=== PATIENT | male | born 1940 | race Caucasian/White ===

== ENCOUNTER → 2017-05-22 | Outpatient (CLI) | payer MEDICARE, OTHER ==
--- NOTE | 2017-05-22 14:46 | RADIOLOGY REPORT (SQ) ---
EXAM DESCRIPTION: CHEST PA/LATERAL COMPLETED DATE/TIME: 05/22/2017 1:47 pm REASON FOR STUDY: ABNORMAL CHEST XRAY COMPARISON: March 2016 EXAM PARAMETERS: NUMBER OF VIEWS: two views TECHNIQUE: Digital Frontal and Lateral radiographic views of the chest acquired. RADIATION DOSE: NA LIMITATIONS: none FINDINGS: LUNGS AND PLEURA: No opacities, masses or pneumothorax. No pleural effusion. MEDIASTINUM AND HILAR STRUCTURES: No masses or contour abnormalities. HEART AND VASCULAR STRUCTURES: Heart normal size. No evidence for failure. BONES: No acute findings. HARDWARE: None in the chest. OTHER: No other significant finding. IMPRESSION: NO SIGNIFICANT RADIOGRAPHIC FINDING IN THE CHEST. TECHNICAL DOCUMENTATION: JOB ID: [id number] [employer]- All Rights Reserved
== END ==
LOC: OD 13:33
PROVIDERS: ATTEND Physician Assistant
DX: R93.8 Abnormal findings on diagnostic imaging of other specified body structures (principal)
CPT/HCPCS: 71020

== ENCOUNTER → 2018-02-10 | Outpatient (CLI) | payer MEDICARE, OTHER ==
--- NOTE | 2018-02-10 16:22 | RADIOLOGY REPORT (SQ) ---
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 The route of agent administration: Intravenous. ADDITIONAL DRUGS AND DOSES: None. TECHNIQUE: Routine delayed images at 3 hours post radionuclide injection acquired of the bony skelet on including anterior and posterior whole-body projections and additional focused images as needed. LIMITATIONS: None. FINDINGS: BONES: No skeletal areas increase tracer activity to suggest metastatic disease is seen. There photopenic areas at the level of the knees bilaterally with some minimal associated increase tr acer accumulation which may be related to bilateral knee prostheses. There is focal increased activi ty at the level of the toes bilaterally which could be degenerative in nature or related to previous trauma P KIDNEYS: Symmetric excretion without obstruction. OTHER: No other significant finding. IMPRESSION: No evidence for skeletal metastatic disease. Other findings as noted above. COMMENT: Quality measure 147: TECHNICAL DOCUMENTATION: JOB ID: [id number] [employer]- All Rights Reserved Reading location - IP/workstation name: [email or web address]
== END ==
LOC: RAD 10:48
PROVIDERS: ATTEND Urology
DX: C61 Malignant neoplasm of prostate (principal)
CPT/HCPCS: 78306; A9561

== ENCOUNTER 2019-11-03 21:25 | Emergency (ER) | payer MEDICARE, OTHER ==
[2019-11-04 00:31] LABS: APPEARANCE,URINE CLEAR; BILIRUBIN,URINE NEGATIVE (NEGATIVE); COLOR,URINE YELLOW; GLUCOSE, URINE NEGATIVE (NEGATIVE); KETONES,URINE NEGATIVE (NEGATIVE); PROTEIN,URINE NEGATIVE (NEGATIVE); URINE SPECIFIC GRAVITY 1.011; UROBILINOGEN,URINE NEGATIVE mg/dL (<2.0)
[2019-11-04 00:40] LABS: ABSOLUTE LYMPHOCYTES (AUTO) 0.9 10^3/uL (0.5-4.7); ABSOLUTE MONOCYTES (AUTO) 0.3 10^3/uL (0.1-1.4); ABSOLUTE NEUT (AUTO) 4.3 10^3/uL (1.7-8.2); BASOPHILS % (AUTO) 0.5 % (0-2); EOSINOPHILS % (AUTO) 0.7 % (0-6); HEMATOCRIT 38.9 % (37.9-51.0); HEMOGLOBIN 13.8 g/dL (13.5-17.0); LYMPHOCYTES % (AUTO) 15.6 % (13-45); MEAN CORPUSCULAR HEMOGLOBIN 32.6 pg (27.0-33.4); MEAN CORPUSCULAR HGB CONC 35.5 g/dL (32.0-36.0); MEAN CORPUSCULAR VOLUME 92 fl (80-97); MONOCYTES % (AUTO) 6.2 % (3-13); PLATELET COUNT 157 10^3/uL (150-450); RED BLOOD COUNT 4.23 10^6/uL (4.35-5.55); RED CELL DISTRIBUTION WIDTH 13.8 % (11.5-14.0); TOTAL CELLS COUNTED % (AUTO) 100 %; WHITE BLOOD COUNT 5.6 10^3/uL (4.0-10.5)
[2019-11-04 00:50] LABS: ALBUMIN 4.4 g/dL (3.5-5.0); ALKALINE PHOSPHATASE 69 U/L (38-126); ANION GAP 8 (5-19); ASPARTATE AMINO TRANSFERASE 32 U/L (17-59); BILIRUBIN,TOTAL 0.5 mg/dL (0.2-1.3); BLOOD UREA NITROGEN 15 mg/dL (7-20); CALCIUM 9.5 mg/dL (8.4-10.2); CARBON DIOXIDE 26 mmol/L (22-30); CHLORIDE 105 mmol/L (98-107); GLUCOSE 111 mg/dL (75-110); POTASSIUM 4.2 mmol/L (3.6-5.0)
--- NOTE | 2019-11-04 00:51 | ER Document Report ---
Entered by STACEY PUGA SCRIBE 11/03/19 [id number] Acting as scribe for:YARELI SORTO IV, MD ED General - General Chief Complaint: Altered Mental Status Stated Complaint: ALTERED MENTAL STATUS/ABNORAL BEHAVIOR Time Seen by Provider: 11/03/19 23:40 Primary Care Provider: MARY YOUNG MD [ACTIVE STAFF] - Follow up as needed Information source: Patient Cannot obtain history due to: Altered mental status Notes: 79-year-old male presents to the emergency department via EMS due to altered mental status. Patient was seen and requested to urinate. Patient's history is difficult to obtain due to patient's altered mental status. TRAVEL OUTSIDE OF THE [place] IN LAST 30 DAYS: No Past Medical History - General Information source: Patient Cannot obtain history due to: Altered mental status - Social History Smoking Status: Unknown if Ever Smoked Family History: Reviewed & Not Pertinent Review of Systems - Review of Systems -: Yes ROS unobtainable due to patient's medical condition Physical Exam - Vital signs Vitals: Temp Pulse Resp BP Pulse Ox 98.2 F 95 18 140/64 H 95 11/03/19 21:37 11/03/19 21:37 11/03/19 21:37 11/03/19 21:37 11/03/19 21:37 - Notes Notes: Physical Exam: General: Alert, appears well. HEENT: Normocephalic. Atraumatic. PERRL. Extraocular movements intact. Oropharynx clear. Neck: Supple. Non-tender. Respiratory: No respiratory distress. Clear and equal breath sounds bilaterally. Cardiovascular: Regular rate and rhythm. Abdominal: Normal Inspection. Non-tender. No distension. Normal Bowel Sounds. Back: No gross abnormalities. Extremities: Moves all four extremities. Upper extremities: Normal inspection. Normal ROM. Lower extremities: Normal inspection. No edema. Normal ROM. Neurological: Normal cognition. AAOx4. Normal speech. Psychological: Normal affect. Normal Mood. Skin: Warm. Dry. Normal color. Course - Re-evaluation Re-evalutation: 11/04/19 04:00 Results of patient's ED MSE discussed with patient. All questions were answered prior to discharge. Emergency signs and symptoms, reasons to return to the emergency department discussed with patient. - Vital Signs Vital signs: Temp Pulse Resp BP Pulse Ox 98.4 F 71 16 114/64 95 11/04/19 04:00 11/04/19 03:00 11/04/19 05:01 11/04/19 05:01 11/04/19 05:01 - Laboratory Result Diagrams: 11/04/19 00:30 11/04/19 00:30 Laboratory results interpreted by me: 11/03/19 11/04/19 11/04/19 21:45 00:30 00:30 RBC 4.23 L Glucose 111 H Urine Ascorbic Acid 20 H - EKG Interpretation by Me Additional EKG results interpreted by me: 11/04/19 04:01 EKG obtained at 00 24 hours on 11/04/2019 was interpreted by this MD. Findings: Sinus rhythm, rate 78, normal axis, P waves proceed QRS complexes, QRS complexes appear narrow, there are no obvious visible patterns of ST segment elevation or depression present to suggest acute myocardial ischemia or infarction. Impression normal sinus rhythm with nonspecific ST segments. Discharge - Discharge Clinical Impression: Altered mental status, unspecified Qualifiers: Altered mental status type: unspecified Qualified Code(s): R41.82 - Altered mental status, unspecified Condition: Good Disposition: HOME, SELF-CARE Additional Instructions: Return to the Emergency Department without delay if any worse. HOME CARE INSTRUCTIONS & INFORMATION: Thank you for choosing us for your medical needs. We hope you're satisfied with the care you received. After you leave, you must properly care for your problem and, at the same time, observe its progress. Any condition can change. Some illnesses can change rapidly over hours or days. If your condition worsens, return to the Emergency Department or see your physician promptly. ABOUT YOUR X-RAYS AND EKG'S: If you had an EKG or X-rays taken, they have been read by the Emergency Physician. The X-rays and EKG's will also be read by a Radiologist or Cafeteria Cook within 24 hours. If discrepancies are noted, you will be notified by telephone. Please be certain the ED has a correct telephone number & address where you can be reached. Also, realize that some fractures or abnormalities do not show up on initial X-rays. If your symptoms continue, see your physician. ABOUT YOUR LABORATORY TEST: If you had laboratory tests, the results have been reviewed by the Emergency Physician. Some test results (for example cultures) may not be available for several days. You will be contacted if any test result shows you need additional treatment. Please be certain the ED has a correct tel ephone number and address where you can be reached. ABOUT YOUR MEDICATIONS: You will receive instructions on how to take your medicine on the prescription label you receive. Additional information may be provided by the Pharmacy. If you have questions afterwards, call the ED for clarification or further instructions. Some prescribed medications may cause drowsiness. Do not perform tasks such as driving a car or operating machinery without consulting your Pharmacist. If you feel you need a refill of pain medication, your condition will need re-evaluation. Please do not call for a refill of any medication. ABOUT YOUR SIGNATURE: Signature of this document acknowledges to followin. Understanding that you received emergency treatment and that you may be released before al medical problems are known or treated. Please be certain the ED has a correct phone number & address where you can be reached. 2. Acknowledgement that you will arrange for follow-up care as recommended. 3. Authorization for the Emergency Physician to provide information to your follow-up Physician in order to maximize your care. AT ANY TIME, IF YOUR SYMPTOMS CHANGE SIGNIFICANTLY OR WORSEN OR YOU DEVELOP NEW SYMPTOMS, RETURN TO THE EMERGENCY DEPARTMENT IMMEDIATELY FOR RE-EVALUATION. OUR GOAL IS TO PROVIDE EXCELLENT MEDICAL CARE! WE HOPE THAT WE HAVE MET YOUR EXPECTATIONS DURING YOUR EMERGENCY DEPARTMENT VISIT AND THAT YOU FEEL YOU HAVE RECEIVED EXCELLENT CARE! Referrals: MARY YOUNG MD [ACTIVE STAFF] - Follow up as needed I personally performed the services described in the documentation, reviewed and edited the documentation which was dictated to the scribe in my presence, and it accurately records my words and actions.
--- NOTE | 2019-11-04 01:49 | RADIOLOGY REPORT (SQ) ---
EXAM DESCRIPTION: CT HEAD WITHOUT IV CONTRAST COMPLETED DATE/TME: 11/03/2019 23:49 CLINICAL INDICATION: 79-year-old male with altered mental status. COMPARISON: None. TECHNIQUE: CT brain without contrast. This exam was performed according to our departmental dose optimization program which includes use of automated exposure control, adjustment of the mA and/or kV according to patient size and/or use of iterative reconstruction technique. FINDINGS: Multifocal regions of patchy hypoattenuation are present in a subcortical and periventricular deep white matter distribution, nonspecific; however, most likely represent small vessel ischemic disease, age indeterminate. Centimeters focus of hypoattenuation is present at the level of the RIGHT basal ganglia, age indeterminate however suggesting sequela of prior lacunar infarction. The ventricles, and sulci are enlarged compatible with underlying volume loss. The jones-white matter differentiation is preserved. There is no mass effect, midline shift, intra- or extra-axial fluid collection/acute hemorrhage. The osseous structures are unremarkable. The paranasal sinuses and mastoid air cells are clear. IMPRESSION: 1. No acute intracranial abnormalities. Nonspecific white matter change most likely small vessel ischemic disease, age indeterminate. 2. CT is insensitive for early evaluation of acute stroke. If there is clinical concern for acute ischemia, an MRI may be considered.
[2019-11-04 06:45] VITALS: BP 125/73
--- NOTE | 2019-11-04 18:14 | EKG REPORT ---
SEVERITY:- NORMAL ECG - SINUS RHYTHM : Confirmed by: Mary Vazquez 04-Nov-2019 18:13:21
== END 2019-11-04 06:00 | disposition home or self-care (01) ==
LOC: ER 21:25
DX: R41.82 Altered mental status, unspecified (principal)
CPT/HCPCS: 36415; 70450; 80053; 81001; 84484; 85025; 93005; 93010; 99285

== ENCOUNTER 2020-03-03 20:43 | Emergency (ER) | payer MEDICARE, OTHER ==
--- NOTE | 2020-03-03 21:16 | ER Document Report ---
ED General - General Chief Complaint: Altered Mental Status Stated Complaint: ALTERED MENTAL STATUS Time Seen by Provider: 03/03/20 21:00 Primary Care Provider: BRICE HOLLAND MD [Primary Care Provider] - Follow up as needed Notes: Patient is an 79-year-old male that comes emergency department for chief complaint of altered mental status. He comes from home by EMS. Patient lives at home with his . He has a history of dementia at baseline but reportedly he was more confused than normal. He also has a history of prostate cancer, hyperlipidemia, and anxiety on Ativan. He also has hearing aids. Patient denies any pain, nausea, weakness, fever/chills, or any current complaints. He states that he "I do not know why my sent me here". He is unable to tell me the year, the president, or his location. However patient does follow directions without difficulty and he is friendly and interactive. TRAVEL OUTSIDE OF THE [place] IN LAST 30 DAYS: No - Related Data Allergies/Adverse Reactions: No Known Allergies Allergy (Unverified 03/03/20 21:21) Past Medical History - General Information source: Patient - Social History Smoking Status: Never Smoker Frequency of alcohol use: None Drug Abuse: None Lives with: Family Family History: Reviewed & Not Pertinent Patient has homicidal ideation: No - Past Medical History Cardiac Medical History: Reports: Hx Hypercholesterolemia Malignancy Medical History: Reports Hx Prostate Cancer Psychiatric Medical History: Reports: Hx Anxiety - Immunizations Hx Diphtheria, Pertussis, Tetanus Vaccination: Yes Review of Systems - Review of Systems Constitutional: See HPI EENT: No symptoms reported Cardiovascular: No symptoms reported Respiratory: No symptoms reported Gastrointestinal: No symptoms reported Genitourinary: No symptoms reported Male Genitourinary: No symptoms reported Musculoskeletal: No symptoms reported Skin: No symptoms reported Hematologic/Lymphatic: No symptoms reported Neurological/Psychological: See HPI Physical Exam - Vital signs Vitals: Resp Pulse Ox 18 96 03/03/20 20:47 03/03/20 20:47 - Notes Notes: GENERAL: Alert, interacts well. No acute distress. HEAD: Normocephalic, atraumatic. EYES: Pupils equal, round, and reactive to light. Extraocular movements intact. ENT: Oral mucosa moist, tongue midline. Oropharynx unremarkable. Airway patent. NECK: Full range of motion. Supple. Trachea midline. No lymphadenopathy. LUNGS: Clear to auscultation bilaterally, no wheezes, rales, or rhonchi. No respiratory distress. Non-tender chest wall. HEART: Regular rate and rhythm. No murmur ABDOMEN: Soft, non-tender. Non-distended. Bowel sounds present in all 4 quadra nts. GENITOURINARY: Deferred EXTREMITIES: Moves all 4 extremities spontaneously. No edema, normal radial and dorsalis pedis pulses bilaterally. No cyanosis. BACK: no cervical, thoracic, lumbar midline tenderness. No saddle anesthesia, normal distal neurovascular exam. Moves all extremities in full range of motion. NEUROLOGICAL: Patient is alert but he is not oriented to place or events. Normal speech. Cranial nerves II through XII grossly intact. Strength 5/5 in all extremities, ambulates without ataxia. PSYCH: Normal affect, normal mood. SKIN: Warm, dry, normal turgor. No rashes or lesions noted. Course - Re-evaluation Re-evalutation: Patient is very alert although he is not oriented. Patient is very cooperative, he speaks without difficulty, his physical exam is unremarkable otherwise, he has no neurological deficits other than the confusion. Reportedly patient is demented at baseline and this has been worsening recently. CT of the head unremarkable, chest x-ray unremarkable, CBC, chemistry, urinalysis, drug screen, alcohol are all unremarkable. We spoke to the about patient being discharged, however the (Abbie) states that she is 79 years old, she no longer can physically take care of him, she states that with his dementia he is becoming more angry, shoves her around, he urinates and defecates on the floor, and her situation has become too difficult for her. She refuses to come pick him up. Reportedly 1 month ago patient was recommended by primary care to be placed in long-term care but this was declined at that time, instead a home health individual was hired 4 days a week but this is not enough help per . Because patient is medically cleared, but will not be picked up to be taken back to his previous residence, patient is a social hold at this time with case management consult pending. Patient's daily medications were ordered. 03/04/20 Patient is coming out to the nursing station and we are having a lot of difficulty redirecting patient back into the room, he did not become violent but he insisted on staying. Initially he was given 2.5 mg of Haldol PO and went tatyana k but then he came back and did the same thing, I had to give him 1 mg of Ativan (he is already prescribed Ativan). After this patient did go back to his room and is lying down. - Vital Signs Vital signs: Temp Pulse Resp BP Pulse Ox 97.9 F 72 16 134/72 H 99 03/03/20 20:58 03/04/20 03:00 03/04/20 03:00 03/04/20 03:00 03/04/20 03:00 - Laboratory Result Diagrams: 03/03/20 21:55 03/03/20 21:55 Laboratory results interpreted by me: 03/03/20 03/03/20 21:55 22:35 Sodium 133.3 L Ammonia < 8.7 L - EKG Interpretation by Me Additional EKG results interpreted by me: EKG shows sinus rhythm at a rate of 73, normal axis, QTC 397, no T wave inversions or ST segment changes in consecutive leads Discharge - Discharge Clinical Impression: Dementia Qualifiers: Dementia type: unspecified type Dementia behavioral disturbance: with behavioral disturbance Qualified Code(s): F03.91 - Unspecified dementia with behavioral disturbance Condition: Stable Disposition: PSYCH HOSP/UNIT Referrals: BRICE HOLLAND MD [Primary Care Provider] - Follow up as needed
[2020-03-03 21:20] LABS: APPEARANCE,URINE CLEAR; BILIRUBIN,URINE NEGATIVE (NEGATIVE); COLOR,URINE STRAW; GLUCOSE, URINE NEGATIVE (NEGATIVE); KETONES,URINE NEGATIVE (NEGATIVE); LEUKOCYTE ESTERASE,URINE NEGATIVE (NEGATIVE); NITRITE,URINE NEGATIVE (NEGATIVE); PROTEIN,URINE NEGATIVE (NEGATIVE); URINE SPECIFIC GRAVITY 1.008; UROBILINOGEN,URINE NEGATIVE mg/dL (<2.0)
--- NOTE | 2020-03-03 22:06 | RADIOLOGY REPORT (SQ) ---
EXAM DESCRIPTION: CT HEAD WITHOUT IV CONTRAST COMPLETED DATE/TME: 03/03/2020 21:13 CLINICAL HISTORY: 79 years, Male, AMS COMPARISON: 11/04/2019 CT TECHNIQUE: 205 Images stored on PACS. All CT scanners at this facility use dose modulation, iterative reconstruction, and/or weight based dosing when appropriate to reduce radiation dose to as low as reasonably achievable (ALARA). [facility]: Dose Right [facility]: CareDose [facility]: Dose Right [facility]: Teradose 4D [facility]: [employer] LIMITATIONS: None. FINDINGS: The globes are intact. Paranasal sinuses and mastoid air cells are well aerated. No displaced or depressed skull fracture. No intra or extra-axial hemorrhage. CT is limited for evaluation of acute infarct. No CT evidence for large or territorial acute infarct. Mild age-appropriate atrophy. No mass or midline shift IMPRESSION: No acute intracranial abnormality. Age-appropriate atrophy TECHNICAL DOCUMENTATION: Quality ID # [id number]: Final reports with documentation of one or more dose reduction techniques (e.g., Automated exposure control, adjustment of the mA and/or kV according to patient size, use of iterative reconstruction technique) copyright 2011 [employer]- All Rights Reserved
[2020-03-03 22:09] LABS: ABSOLUTE BASOPHILS # (AUTO) 0.1 10^3/uL (0.0-0.2); ABSOLUTE EOSINOPHILS # (AUTO) 0.1 10^3/uL (0.0-0.6); ABSOLUTE LYMPHOCYTES (AUTO) 1.4 10^3/uL (0.5-4.7); ABSOLUTE MONOCYTES (AUTO) 0.4 10^3/uL (0.1-1.4); ABSOLUTE NEUT (AUTO) 2.8 10^3/uL (1.7-8.2); BASOPHILS % (AUTO) 1.3 % (0-2); EOSINOPHILS % (AUTO) 1.7 % (0-6); HEMATOCRIT 41.3 % (37.9-51.0); HEMOGLOBIN 14.2 g/dL (13.5-17.0); LYMPHOCYTES % (AUTO) 29.3 % (13-45); MEAN CORPUSCULAR HGB CONC 34.3 g/dL (32.0-36.0); MEAN CORPUSCULAR VOLUME 93 fl (80-97); MONOCYTES % (AUTO) 9.2 % (3-13); PLATELET COUNT 183 10^3/uL (150-450); RED BLOOD COUNT 4.43 10^6/uL (4.35-5.55); RED CELL DISTRIBUTION WIDTH 13.5 % (11.5-14.0); SEGMENTED NEUTROPHILS % (AUTO) 58.5 % (42-78); TOTAL CELLS COUNTED % (AUTO) 100 %; WHITE BLOOD COUNT 4.8 10^3/uL (4.0-10.5)
--- NOTE | 2020-03-03 22:10 | RADIOLOGY REPORT (SQ) ---
EXAM DESCRIPTION: XR CHEST 1 VIEW COMPLETED DATE/TME: 03/03/2020 21:13 CLINICAL HISTORY: 79 years, Male, AMS COMPARISON: 05/22/2017 chest NUMBER OF VIEWS: 1 TECHNIQUE: Portable chest LIMITATIONS: None. FINDINGS: The heart size is normal. Lungs are clear. No pneumothorax IMPRESSION: Negative chest copyright 2010 [employer]- All Rights Reserved
[2020-03-03 22:28] LABS: ALBUMIN 4.9 g/dL (3.5-5.0); ALKALINE PHOSPHATASE 80 U/L (38-126); ANION GAP 7 (5-19); ASPARTATE AMINO TRANSFERASE 31 U/L (17-59); BILIRUBIN,TOTAL 0.3 mg/dL (0.2-1.3); BLOOD UREA NITROGEN 18 mg/dL (7-20); CALCIUM 9.5 mg/dL (8.4-10.2); CARBON DIOXIDE 28 mmol/L (22-30); CHLORIDE 98 mmol/L (98-107); GLUCOSE 105 mg/dL (75-110); POTASSIUM 4.2 mmol/L (3.6-5.0); TOTAL PROTEIN 7.6 g/dL (6.3-8.2)
[2020-03-03 22:33] LABS: ALCOHOL < 10 mg/dL (NONE DETECTED)
--- NOTE | 2020-03-03 22:38 | EKG REPORT ---
SEVERITY:- NORMAL ECG - SINUS RHYTHM : Confirmed by: Frank Emmanuel MD 03-Mar-2020 22:38:05
[2020-03-03 23:06] LABS: URINE AMPHETAMINES SCREEN NEGATIVE; URINE BARBITURATES SCREEN NEGATIVE; URINE BENZODIAZEPINES SCREEN NEGATIVE; URINE COCAINE SCREEN NEGATIVE; URINE MARIJUANA (THC) SCREEN NEGATIVE; URINE METHADONE SCREEN NEGATIVE; URINE PHENCYCLIDINE SCREEN NEGATIVE
[2020-03-04] MEDS ORDERED: HALOPERIDOL 5 MG TABLET PO ONE (01:51)
[2020-03-04] MEDS ORDERED: LORAZEPAM 1 MG TABLET PO ONE (04:07)
[2020-03-04] MEDS ORDERED: DOXAZOSIN MESYLATE 4 MG TABLET PO SCH (10:00)
[2020-03-04] MEDS ORDERED: HALOPERIDOL 2 MG TABLET PO PRN (15:36)
[2020-03-04] MEDS: LORAZEPAM 0.5 MG TABLET PO PRN (15:41)
--- NOTE | 2020-03-04 15:43 | ER Document Report ---
Doctor's Note Notes: 03/04/20 15:39 Provider rounds on patient today. Patient examined, and his episodic behavioral disturbance and agitation needing redirection back to his room. Patient is on social hold inasmuch as his family does not want to have him return to home and therefore case management is working on a disposition for patient.disposition determination was yet to be determined at this time Exam: Patient is not showing any acute distress other than his dementia is noted. Plan: Pending disposition per case management.
[2020-03-04] MEDS ORDERED: MELATONIN 3 MG TABLET PO ONE (17:50)
[2020-03-04] MEDS ORDERED: SIMVASTATIN 10 MG TABLET PO SCH (22:00)
[2020-03-05] MEDS: LORAZEPAM 0.5 MG TABLET PO PRN (01:38)
[2020-03-05 06:41] VITALS: BP 117/56
--- NOTE | 2020-03-05 07:38 | ER Document Report ---
Doctor's Note Notes: 0 ED providers note daily exam. Patient is in no distress vital signs are stable patient has no complaints at this time. Patient's has agreed to receive patient at home and she. Patient is being discharged today and transportation by cab voucher. Exam lungs clear equal breath sounds cor S1-S2 patient alert and voices no new complaints. Assessment dementia Plan discharge home follow-up with primary care physician. No new prescriptions at this time. 03/05/20 07:35 Discharge - Discharge Clinical Impression: Dementia Qualifiers: Dementia type: unspecified type Dementia behavioral disturbance: with behavioral disturbance Qualified Code(s): F03.91 - Unspecified dementia with behavioral disturbance Condition: Stable Disposition: HOME, SELF-CARE Additional Instructions: Dementia The exam shows a decrease in mental ability called dementia. Signs of dementia include a gradual loss of memory and a decreased ability to reason and solve problems. Personality changes, hostility, lack of self-care, and loss of bladder or bowel control are later signs of dementia. In these later stages, patients may become confused, lost, fearful, or agitated, even in familiar places. Alzheimer's disease is the most common type of dementia. It has no known cause or specific treatment. Other causes include alcohol and drug abuse, medication effects (especially tranquilizers and sleeping pills), strokes, head injuries, and brain tumors. Sometimes severe depression in an elderly person is mistaken for dementia, and this can be treated if recognized. A complete medical evaluation and ongoing care with a doctor is important. Most people with dementia need help or supervision with daily living. Some may be able to live independently with occasional help; others require foster care or even shelter placement. Alcohol, sedatives, and antihistamines may make the symptoms worse and should be avoided. Alzheimer's disease support groups are available in some communities and can be very valuable to the entire family. Prescription medication can ease the symptoms of Alzheimer's disease in some patients. Please arrange for medical follow-up. Return here if there is a sudden change in mental function, inability to move an arm or leg, inability to speak, fever, or any other significant change. Referrals: BRICE HOLLAND MD [Primary Care Provider] - Follow up as needed
== END 2020-03-05 08:11 | disposition home or self-care (01) ==
LOC: ER 20:43
DX: F03.91 Unspecified dementia, unspecified severity, with behavioral disturbance (principal); F41.9 Anxiety disorder, unspecified; Z79.899 Other long term (current) drug therapy; Z85.46 Personal history of malignant neoplasm of prostate
CPT/HCPCS: 93005; 99285; 36415; 80307 ×2; 82140; 85025; 80053; 81001; 84484; 71045; 70450; 93010; A9270 ×8; J3490

== ENCOUNTER 2020-03-09 17:35 | Emergency (ER) | payer MEDICARE, OTHER ==
[2020-03-09 18:25] LABS: ABSOLUTE BASOPHILS # (AUTO) 0.1 10^3/uL (0.0-0.2); ABSOLUTE EOSINOPHILS # (AUTO) 0.1 10^3/uL (0.0-0.6); ABSOLUTE LYMPHOCYTES (AUTO) 1.3 10^3/uL (0.5-4.7); ABSOLUTE MONOCYTES (AUTO) 0.4 10^3/uL (0.1-1.4); ABSOLUTE NEUT (AUTO) 3.5 10^3/uL (1.7-8.2); EOSINOPHILS % (AUTO) 1.2 % (0-6); HEMATOCRIT 42.4 % (37.9-51.0); HEMOGLOBIN 14.6 g/dL (13.5-17.0); LYMPHOCYTES % (AUTO) 24.4 % (13-45); MEAN CORPUSCULAR HEMOGLOBIN 32.1 pg (27.0-33.4); MEAN CORPUSCULAR HGB CONC 34.5 g/dL (32.0-36.0); MEAN CORPUSCULAR VOLUME 93 fl (80-97); MONOCYTES % (AUTO) 7.2 % (3-13); PLATELET COUNT 187 10^3/uL (150-450); RED BLOOD COUNT 4.56 10^6/uL (4.35-5.55); RED CELL DISTRIBUTION WIDTH 13.4 % (11.5-14.0); SEGMENTED NEUTROPHILS % (AUTO) 66.2 % (42-78); TOTAL CELLS COUNTED % (AUTO) 100 %; WHITE BLOOD COUNT 5.2 10^3/uL (4.0-10.5)
--- NOTE | 2020-03-09 18:26 | ER Document Report ---
ED General - General Chief Complaint: Psych Problem Stated Complaint: PSYCH EVALUATION Time Seen by Provider: 03/09/20 18:19 Primary Care Provider: BRICE HOLLAND MD [Primary Care Provider] - Follow up as needed Mode of Arrival: Medic Information source: Patient Notes: This 79-year-old man with a history of Alzheimer's dementia was brought to the emergency department by EMS. Apparently the has sent him to the hospital because she is unable to take care of him at home. She also notes that she feels that he is a threat and that he may harm her. The local Hemotherapist's office got involved all the guns were taken out of the household, the is adamant that he must come to the hospital since she is unable to care for him. Patient is nonverbal and unable to complete a normal verbal exchange. TRAVEL OUTSIDE OF THE [place] IN LAST 30 DAYS: No - Related Data Allergies/Adverse Reactions: No Known Allergies Allergy (Verified 03/09/20 18:03) Past Medical History - Social History Smoking Status: Unknown if Ever Smoked Family History: Reviewed & Not Pertinent - Past Medical History Cardiac Medical History: Reports: Hx Hypercholesterolemia Malignancy Medical History: Reports Hx Prostate Cancer Psychiatric Medical History: Reports: Hx Anxiety - Immunizations Hx Diphtheria, Pertussis, Tetanus Vaccination: Yes Review of Systems - Review of Systems -: Yes ROS unobtainable due to patient's medical condition - Dementia and inability to answer questions appropriately Physical Exam - Vital signs Vitals: Temp Pulse Resp BP Pulse Ox 98.0 F 96 20 131/74 H 95 03/09/20 17:50 03/09/20 17:50 03/09/20 17:50 03/09/20 17:50 03/09/20 17:50 - Notes Notes: PHYSICAL EXAMINATION: Physical Exam: General: Frail confused 79-year-old man in no acute distress HEENT: NC/AT, pupils equal round and reactive to light, MM moist,nares clear, oropharynx clear, airway patent Neck: supple, no adenopathy, no masses. Good range of motion Lungs: Good air movement, no wheezes or rales CVS: Regular rate and rhythm no murmur gallop or rub Abdomen: Soft, active, nontender, no masses, no hepatosplenomegaly Ext: No edema, clubbing or cyanosis. Neuro: No focal neurologic findings. Skin: Intact no open lesions, no rash Psychiatric: Cooperative, reaches out to shake my hand on prompting, when asked his name he mumbles incoherently. Course - Re-evaluation Re-evalutation: 03/12/20 10:55 The patient is being discharged home with and has a physician's appointment today. - Vital Signs Vital signs: Temp Pulse Resp BP Pulse Ox 97.5 F 77 16 115/75 100 03/12/20 10:17 03/12/20 10:17 03/12/20 10:17 03/12/20 10:17 03/12/20 10:17 - Laboratory Result Diagrams: 03/09/20 18:13 03/09/20 18:13 Laboratory results interpreted by me: 03/09/20 18:13 Sodium 133.2 L Salicylates < 1.0 L Acetaminophen < 10 L I have reviewed laboratory data and used this information for the treatment decisions regarding the patient. - EKG Interpretation by Me EKG shows normal: Sinus rhythm, [place] - Normal, QRS Complexes, ST-T Waves - No acute ST or T wave abnormalities, no ischemic changes. Rate: Normal - Rate 79 Discharge - Discharge Clinical Impression: Poor social situation Alzheimer's dementia with behavioral disturbance Qualifiers: Alzheimer's disease onset: unspecified onset Qualified Code(s): G30.9 - Alzheimer's disease, unspecified Condition: Fair Disposition: HOME, SELF-CARE Instructions: Dementia ([facility]) Additional Instructions: The patient is being discharged home with and has a physician's appointment today. HOME CARE INSTRUCTIONS & INFORMATION: Thank you for choosing us for your medical needs. We hope you're satisfied with the care you received. After you leave, you must properly care for your problem and, at the same time, observe its progress. Any condition can change. Some illnesses can change rapidly over hours or days. If your condition worsens, return to the Emergency Department or see your physician promptly. ABOUT YOUR X-RAYS AND EKG'S: If you had an EKG or X-rays taken, they have been read by the Emergency Physician. The X-rays and EKG's will also be read by a Radiologist or Bleach Mixer within 24 hours. If discrepancies are noted, you will be notified by telephone. Please be certain the ED has a correct telephone number & address where you can be reached. Also, realize that some fractures or abnormalities do not show up on initial X-rays. If your symptoms continue, see your physician. ABOUT YOUR LABORATORY TEST: If you had laboratory tests, the results have been reviewed by the Emergency Physician. Some test results (for example cultures) may not be available for several days. You will be contacted if any test result shows you need additional treatment. Please be certain the ED has a correct tel ephone number and address where you can be reached. ABOUT YOUR MEDICATIONS: You will receive instructions on how to take your medicine on the prescription label you receive. Additional information may be provided by the Pharmacy. If you have questions afterwards, call the ED for clarification or further instructions. Some prescribed medications may cause drowsiness. Do not perform tasks such as driving a car or operating machinery without consulting your Pharmacist. If you feel you need a refill of pain medication, your condition will need re-evaluation. Please do not call for a refill of any medication. ABOUT YOUR SIGNATURE: Signature of this document acknowledges to followin. Understanding that you received emergency treatment and that you may be released before al medical problems are known or treated. Please be certain the ED has a correct phone number & address where you can be reached. 2. Acknowledgement that you will arrange for follow-up care as recommended. 3. Authorization for the Emergency Physician to provide information to your follow-up Physician in order to maximize your care. AT ANY TIME, IF YOUR SYMPTOMS CHANGE SIGNIFICANTLY OR WORSEN OR YOU DEVELOP NEW SYMPTOMS, RETURN TO THE EMERGENCY DEPARTMENT IMMEDIATELY FOR RE-EVALUATION. OUR GOAL IS TO PROVIDE EXCELLENT MEDICAL CARE! WE HOPE THAT WE HAVE MET YOUR EXPECTATIONS DURING YOUR EMERGENCY DEPARTMENT VISIT AND THAT YOU FEEL YOU HAVE RECEIVED EXCELLENT CARE! Prescriptions: Buspirone HCl [Buspar 10 mg Tablet] 5 mg PO BID #20 tablet Clonidine HCl [Catapres 0.1 mg Tablet] 0.1 mg PO Q12 #20 tablet Clonidine [Catapres-Tts 1] 1 each TD CONTINUOUS PRN #2 patch.tdwk PRN Reason: Divalproex Sodium [Depakote] 500 mg PO BID #20 tablet. Risperidone [Risperdal 0.25 Mg Tablet] 0.25 mg PO BID #20 tablet Referrals: BRICE HOLLAND MD [Primary Care Provider] - Follow up as needed
[2020-03-09 18:46] LABS: ALBUMIN 4.8 g/dL (3.5-5.0); ALKALINE PHOSPHATASE 65 U/L (38-126); ANION GAP 10 (5-19); ASPARTATE AMINO TRANSFERASE 32 U/L (17-59); BILIRUBIN,TOTAL 0.6 mg/dL (0.2-1.3); BLOOD UREA NITROGEN 18 mg/dL (7-20); CALCIUM 9.5 mg/dL (8.4-10.2); CARBON DIOXIDE 24 mmol/L (22-30); CHLORIDE 99 mmol/L (98-107); GLUCOSE 104 mg/dL (75-110); POTASSIUM 4.4 mmol/L (3.6-5.0); TOTAL PROTEIN 7.5 g/dL (6.3-8.2)
[2020-03-09 18:47] LABS: ACETAMINOPHEN < 10 ug/mL (10-30); ALCOHOL < 10 mg/dL (NONE DETECTED); SALICYLATE < 1.0 mg/dL (2.0-20.0)
[2020-03-09] MEDS ORDERED: LORAZEPAM 1 MG TABLET PO PRN (19:49)
[2020-03-09 19:58] LABS: APPEARANCE,URINE CLEAR; BILIRUBIN,URINE NEGATIVE (NEGATIVE); COLOR,URINE YELLOW; GLUCOSE, URINE NEGATIVE (NEGATIVE); KETONES,URINE NEGATIVE (NEGATIVE); LEUKOCYTE ESTERASE,URINE NEGATIVE (NEGATIVE); NITRITE,URINE NEGATIVE (NEGATIVE); PROTEIN,URINE NEGATIVE (NEGATIVE); URINE SPECIFIC GRAVITY 1.011; UROBILINOGEN,URINE NEGATIVE mg/dL (<2.0)
[2020-03-09 20:17] LABS: URINE AMPHETAMINES SCREEN NEGATIVE; URINE BARBITURATES SCREEN NEGATIVE; URINE BENZODIAZEPINES SCREEN NEGATIVE; URINE COCAINE SCREEN NEGATIVE; URINE MARIJUANA (THC) SCREEN NEGATIVE; URINE METHADONE SCREEN NEGATIVE; URINE PHENCYCLIDINE SCREEN NEGATIVE
[2020-03-09] MEDS: BUSPIRONE HCL 10 MG TABLET PO SCH (21:25)
[2020-03-09] MEDS: DIVALPROEX SODIUM 250 MG TABLET.DR PO SCH (21:25)
[2020-03-10] MEDS: BUSPIRONE HCL 10 MG TABLET PO SCH ×2 (10:10→18:48)
[2020-03-10] MEDS: DIVALPROEX SODIUM 250 MG TABLET.DR PO SCH ×2 (10:11→18:48)
--- NOTE | 2020-03-10 10:42 | PSYCHOLOGICAL NOTE ---
Psych Note - Psych Note Date seen by psych provider: 03/09/20 Time seen by psych provider: 18:43 - [id number] collateral Psych Note: From [id number] obtained collateral from Emily Borrego ([phone] home, cell) when she called in to nurses station. She reported patient "has Dementia, History of Alcohol Use, the last month he has progressively worsened in terms of being violent/aggressive and today he seemed psychotic." She noted today he pulled out his guns which the Waterproofer has already confiscated. She noted he was in the ED a week ago for similar etiology. reported "I'm 79, disabled, have heart disease with pacemaker, I have a lady that helps me take care of him but he has behaviors with both of us, he cannot come home, I'm scared of him." She identified Dr. Sloan at [facility] is patient's Primary Care Provider who tried to put him into a shelter 4-6 weeks ago "but the paperwork and processing has not been completed." stated she had gone to the Remediation Technician's office where she was given and APS number (female, ) and told to request IVC and COVID testing. She acknowledged her only contact with APS had been today via telephone. denied patient having Mental Health history with the exception of alcohol use in the past and she described it as "there were bad times." was tearful. Chart review revealed patient was seen in the ED 03/02/2020 for altered mental status/similar etiology. He was also seen on 11/03/2019 for altered mental status/abnormal behavior. Clinical Presentation: Increased aggression with behavioral episodes and psychosis History of Dementia per History of Alcohol Use per Medication recommendations made by the psychiatric medication provider Dr. Ivon MARIE., includes: Discontinue home medications of: Ativan 0.5MG twice a day as needed Halcion 0.25MG at night Add Depakote DR 500MG twice a day for mood stabilization Add Buspar 5MG twice a day for anxiety/calming effect/depression/sleep Impression/Plan: Patient is a social hold (ED SW has already been consulted by medical staff). is elderly with medical issues and having difficulty managing patient at home even with the help of another lady. Provided medication recommendations to aid in symptom (increased aggression with behavioral episodes and psychosis per ) management. Consulted with Dr. Daley regarding the management and care of patient. ED Physician in agreement with recommendations.
--- NOTE | 2020-03-10 11:46 | EKG REPORT ---
SEVERITY:- ABNORMAL ECG - SINUS RHYTHM NONSPECIFIC T ABNORMALITIES, LATERAL LEADS : Confirmed by: Rinku Philip MD 10-Mar-2020 11:46:12
[2020-03-10] MEDS: LORAZEPAM 1 MG TABLET PO PRN ×2 (12:17→18:48)
[2020-03-10] MEDS ORDERED: HALOPERIDOL 5 MG TABLET PO ONE (21:51)
[2020-03-10] MEDS ORDERED: LORAZEPAM 0.5 MG TABLET PO ONE (21:51)
[2020-03-11] MEDS: BUSPIRONE HCL 10 MG TABLET PO SCH ×2 (09:08→17:58)
[2020-03-11] MEDS: DIVALPROEX SODIUM 250 MG TABLET.DR PO SCH ×2 (09:09→17:58)
[2020-03-11] MEDS ORDERED: CLONIDINE 0.1 MG/24 HR PATCH.TDWK TD SCH ×2 (10:45→11:00)
[2020-03-11] MEDS ORDERED: CLONIDINE HCL 0.1 MG TABLET PO PRN (10:50)
--- NOTE | 2020-03-11 10:52 | PSYCHOLOGICAL NOTE ---
Psych Note - Psych Note Date seen by psych provider: 03/11/20 Time seen by psych provider: 10:20 - Chart review only Psych Note: Conducted chart review. Late yesterday afternoon patient had multiple instances of wandering behaviors (going into other patients' rooms) and was not easily redirected. He was subsequently put into soft restraints. He chewed through one of the soft restraints which had to be replaced. He was administered Ativan 1MG by mouth 03/10/2020 at 1848, Ativan 0.5MG by mouth 03/10/2020 at 2201 and Haldol 5MG by mouth 03/10/2020 at 2202 all to aid in symptom management after he chewed through the soft restraint. Please note the Depakote 500MG by mouth twice a day was just added 03/09/2020 evening and often takes a few days to become therapeutic. Once it is symptoms should be more manageable. Also discontinued home medications of Halcion (should be out of system already) and Ativan (takes a little longer to get out of system if it was taken regularly). Medication recommendations made by the psychiatric medication provider Dr. Ivon MARIE., includes: Treating Physicians are asked to avoid the use of Anti-Psychotic Medications (Haldol, Geodon, Thorazine, Zyprexa: especially high doses), Benzodiazepines (Ativan, Xanax, Klonopin, Valium: especially high doses), some sleep aids (Lunesta, Ambien, Trazodone, Seroquel), prolonged use of steroids (such as Prednisone) and narcotic pain medications as these are known to cause and/or exacerbate symptoms (psychosis such has delusions/hallucinations/paranoia, mood lability, agitation, aggression, irritability and behavioral issues) in individuals diagnosed with Dementia/Alzheimer's. Often times these medications work in the moment but cause increased symptoms after the medication(s) wear off. Add Risperdal 0.25MG by mouth twice a day scheduled for behaviors (includes agitation, psychomotor agitation, wandering) Add Clonidine 0.1MG Patch every 7 days scheduled for calming effect Add Clonidine 0.1MG by mouth twice a day/every 12 hours as needed for calming effect/behaviors *Can obtain Depakote level tomorrow (03/12/2020) to see where the therapeutic levels are. Impression/Plan: Patient is still cleared from acute psychiatric services. Behavioral Health just trying to assist with medication recommendations for symptom management that also take into consideration the Dementia diagnosis. Hospital SW/DC Planning is involved and have already reached out to patient's . Consulted with Dr. Daley regarding the management and care of patient. ED Physician made aware of recommendations.
[2020-03-11] MEDS: RISPERIDONE 0.25 MG TABLET PO SCH ×2 (11:12→18:02)
[2020-03-11] MEDS ORDERED: ONDANSETRON 4 MG TAB.RAPDIS ONE (15:43)
[2020-03-11] MEDS ORDERED: ONDANSETRON 4 MG TAB.RAPDIS PO ONE (15:43)
[2020-03-11] MEDS ORDERED: ONDANSETRON HCL INJ/PF 4 MG/2 ML SDV IM ONE (17:04)
--- NOTE | 2020-03-11 17:04 | ER Document Report ---
Doctor's Note Notes: 03/11/20 11:00 Janae [facility] asked if I can evaluate the patient for Dr. Sibley. She also gave recommendations on medications. They would like to add Risperdal 0.25 mg p.o. twice daily, clonidine 0.1 mg patch every 7 days, clonidine 0.1 mg every 12 hours as needed for agitation. [facility] also recommends, "please avoid antipsychotic contacts (Haldol, Thorazine, Geodon, Zyprexa: Especially high doses) and benzodiazepines (Ativan, Klonopin, Xanax, Valium) as these have been known to cause and/or exacerbate symptoms (psychosis, mood, aggression) in individuals with dementia/Alzheimer's. They are also recommending that the patient have a Depakote level drawn tomorrow morning. Order placed. Patient became agitated overnight and [facility] does not recommend those medications. 03/11/20 17:04 Patient ended up vomiting began. We will give him Zofran. Asked the nurses to repeat vital signs. 03/11/20 19:47 Patient has not vomited since he received the IM Zofran. Lung sounds are little wheezy. Will give him a breathing treatment. Patient has been walking around in the ED escorted by a sitter to ensure the patient safety and also to help prevent psychosis. PHYSICAL EXAMINATION: GENERAL: Appears well, healthy, well-nourished, no acute distress. LUNGS: Equal breath sounds bilaterally and clear to auscultation. Expiratory wheezes noted in the left lower lobe. CARDIOVASCULAR: S1-S2, regular rate, regular rhythm. Radial pulses 2+, normal. ABDOMEN: Normoactive bowel sounds. Soft, nontender, no guarding, no rebound tenderness, and no masses palpated. PSYCH: Normal mood, normal affect.
[2020-03-11] MEDS ORDERED: ALBUTEROL SULFATE 0.083% NEB 2.5 MG/3 ML AMPUL NEB ONE (19:48)
--- NOTE | 2020-03-11 20:32 | ER Document Report ---
Doctor's Note Notes: 03/11/20 20:28 I reevaluated the patient after his breathing treatment. He has coarse breath sounds in the left lower lobe. Chest x-ray ordered. Primary RN reports that the patient is gurgling little bit. We will also put a speech consult in.
--- NOTE | 2020-03-11 20:51 | RADIOLOGY REPORT (SQ) ---
EXAM DESCRIPTION: XR CHEST 2 VIEWS COMPLETED DATE/TME: 03/11/2020 20:26 CLINICAL HISTORY: 79 years, Male, eval aspiration PNA? COMPARISON: Prior study from 03/03/2020 NUMBER OF VIEWS: 2 TECHNIQUE: Frontal and lateral radiograph are obtained LIMITATIONS: None. FINDINGS: Cardiac and mediastinal contours are stable. Lungs are clear. No pleural effusion or pneumothorax. IMPRESSION: No acute disease. copyright 2010 [employer]- All Rights Reserved
[2020-03-12] MEDS: BUSPIRONE HCL 10 MG TABLET PO SCH (09:42)
[2020-03-12] MEDS: DIVALPROEX SODIUM 250 MG TABLET.DR PO SCH (09:42)
[2020-03-12] MEDS: RISPERIDONE 0.25 MG TABLET PO SCH (09:42)
[2020-03-12 10:18] VITALS: BP 115/75
== END 2020-03-12 12:17 | disposition home or self-care (01) ==
LOC: ER 17:35
DX: G30.9 Alzheimer's disease, unspecified (principal); F02.80 Dementia in other diseases classified elsewhere, unspecified severity, without behavioral disturbance, psychotic disturbance, mood disturbance, and anxiety; Z60.9 Problem related to social environment, unspecified; Z20.828 Contact with and (suspected) exposure to other viral communicable diseases
CPT/HCPCS: 93005; 94640; 99285; 96372; 36415; 80307 ×4; 85025; 80053; 81001; 80164; 93010; U0003; A9270 ×16; J2405; C9803; 87635; J3490; S0119

== ENCOUNTER 2020-03-21 19:38 | Observation (INO) | payer MEDICARE, OTHER ==
[2020-03-21] MEDS ORDERED: IPRATROPIUM/ALBUTEROL 0.5-2.5 MG/3 ML AMPUL NEB ONE (21:12)
[2020-03-21] MEDS ORDERED: LORAZEPAM INJ 2 MG/1 ML VIAL IV ONE (21:15)
--- NOTE | 2020-03-21 21:50 | RADIOLOGY REPORT (SQ) ---
EXAM DESCRIPTION: [employer]Lex: XR CHEST 1 VIEW CLINICAL HISTORY: 79 years Male; shortness of breath; COMPARISON: 03/17/2020 FINDINGS: Lungs: Aeration has improved, with only minimal interstitial densities bilaterally. No focal consolidation. No new infiltrates. Mediastinum: Calcified paratracheal lymph node is again noted. Mediastinum is otherwise unremarkable. Bones: Bony structures are unremarkable. IMPRESSION: 1. Improved aeration since 03/17/2020. No new infiltrates.
[2020-03-21 22:04] LABS: ABSOLUTE EOSINOPHILS # (AUTO) 0.1 10^3/uL (0.0-0.6); ABSOLUTE MONOCYTES (AUTO) 0.6 10^3/uL (0.1-1.4); ABSOLUTE NEUT (AUTO) 3.5 10^3/uL (1.7-8.2); BASOPHILS % (AUTO) 0.8 % (0-2); EOSINOPHILS % (AUTO) 1.5 % (0-6); HEMATOCRIT 38.8 % (37.9-51.0); HEMOGLOBIN 13.2 g/dL (13.5-17.0); LYMPHOCYTES % (AUTO) 18.7 % (13-45); MEAN CORPUSCULAR HEMOGLOBIN 31.8 pg (27.0-33.4); MEAN CORPUSCULAR HGB CONC 34.1 g/dL (32.0-36.0); MEAN CORPUSCULAR VOLUME 93 fl (80-97); MONOCYTES % (AUTO) 11.4 % (3-13); PLATELET COUNT 175 10^3/uL (150-450); RED BLOOD COUNT 4.16 10^6/uL (4.35-5.55); RED CELL DISTRIBUTION WIDTH 13.7 % (11.5-14.0); SEGMENTED NEUTROPHILS % (AUTO) 67.6 % (42-78); TOTAL CELLS COUNTED % (AUTO) 100 %; WHITE BLOOD COUNT 5.2 10^3/uL (4.0-10.5)
[2020-03-21] MEDS ORDERED: HALOPERIDOL LACTATE INJ 5 MG/1 ML VIAL IM ONE (22:18)
[2020-03-21] MEDS ORDERED: ONDANSETRON HCL INJ/PF 4 MG/2 ML SDV ONE (22:20)
[2020-03-21 22:22] LABS: ALBUMIN 4.3 g/dL (3.5-5.0); ALKALINE PHOSPHATASE 63 U/L (38-126); ANION GAP 7 (5-19); ASPARTATE AMINO TRANSFERASE 47 U/L (17-59); BILIRUBIN,DIRECT 0.1 mg/dL (0.0-0.4); BILIRUBIN,TOTAL 0.5 mg/dL (0.2-1.3); BLOOD UREA NITROGEN 12 mg/dL (7-20); CALCIUM 9.3 mg/dL (8.4-10.2); CARBON DIOXIDE 27 mmol/L (22-30); CHLORIDE 102 mmol/L (98-107); GLUCOSE 101 mg/dL (75-110); POTASSIUM 4.2 mmol/L (3.6-5.0); TOTAL PROTEIN 6.9 g/dL (6.3-8.2)
--- NOTE | 2020-03-21 22:35 | ER Document Report ---
ED General - General Chief Complaint: Cough Stated Complaint: PNEUMONIA Time Seen by Provider: 03/21/20 20:22 Mode of Arrival: Medic Information source: Emergency Med Personnel Notes: Patient is an 79-year-old male with history of dementia with aggressive tendencies presenting to the emergency department with concern for increased cough and aggressive behavior. Patient was apparently discharged from this hospital today and was sent home with his . His called EMS today stating that he continued to have coughing spells. She states that she has been unable to care for him at home. TRAVEL OUTSIDE OF THE [place] IN LAST 30 DAYS: No - Related Data Allergies/Adverse Reactions: No Known Allergies Allergy (Verified 03/09/20 18:03) Past Medical History - General Information source: Patient - Social History Smoking Status: Unknown if Ever Smoked Frequency of alcohol use: None Drug Abuse: None Family History: Reviewed & Not Pertinent - Past Medical History Cardiac Medical History: Reports: Hx Hypercholesterolemia Malignancy Medical History: Reports Hx Prostate Cancer Psychiatric Medical History: Reports: Hx Anxiety, Hx Dementia Denies: Hx Depression - Immunizations Hx Diphtheria, Pertussis, Tetanus Vaccination: Yes Review of Systems - Review of Systems Constitutional: No symptoms reported EENT: No symptoms reported Cardiovascular: No symptoms reported Respiratory: Cough Gastrointestinal: No symptoms reported Genitourinary: No symptoms reported Male Genitourinary: No symptoms reported Musculoskeletal: No symptoms reported Skin: No symptoms reported Hematologic/Lymphatic: No symptoms reported Neurological/Psychological: No symptoms reported Physical Exam - Vital signs Vitals: Pulse Ox 95 03/21/20 19:42 - Notes Notes: PHYSICAL EXAMINATION: GENERAL: Well-appearing, well-nourished and in no acute distress. HEAD: Atraumatic, normocephalic. EYES: Pupils equal round and reactive to light, extraocular movements intact, sclera anicteric, conjunctiva are normal. ENT: Nares patent, oropharynx clear without exudates. Moist mucous membranes. NECK: Normal range of motion, supple without lymphadenopathy LUNGS: Breath sounds clear to auscultation bilaterally and equal. No wheezes rales or rhonchi. HEART: Regular rate and rhythm without murmurs ABDOMEN: Soft, nontender, nondistended abdomen. No guarding, no rebound. No masses appreciated. Musculoskeletal: Normal range of motion, no pitting or edema. No cyanosis. NEUROLOGICAL: Cranial nerves grossly intact. Normal sensory, motor exams. PSYCH: Confused, combative. SKIN: Warm, Dry, normal turgor, no rashes or lesions noted. Course - Re-evaluation Re-evalutation: 03/21/202229 I have been at the bedside for significant amount of time helping the nursing staff as patient is very confused, he is combative, he is not directable and he has been climbing out of bed. We did attempt to use a roll belt however patient was able to get out of this x3. Patient has now been given 0.5 mg of IV Ativan x1 and he has now been given 2 mg of Haldol IM x1. While we were in the room with him he did start vomiting coffee-ground emesis, this was placed on the Gastroccult card and is positive for blood. We have placed patient with a one-to-one sitter. Called and spoke with on-call hospitalist, Dr. Mcqueen. He will come to the emergency department and evaluate the patient. I also discussed the case with Dr. Adams my attending physician. We have given the patient 40 mg of Protonix IV. The patient is currently resting comfortably with eyes closed. The Haldol 2 mg IM seems to have worked well. - Vital Signs Vital signs: Temp Pulse Resp BP Pulse Ox 98.9 F 24 H 116/67 100 03/21/20 19:55 03/21/20 21:08 03/21/20 21:08 03/22/20 00:17 - Laboratory Result Diagrams: 03/21/20 21:47 03/21/20 21:47 Laboratory results interpreted by me: 03/21/20 03/21/20 03/21/20 21:47 21:47 21:47 RBC 4.16 L Hgb 13.2 L Sodium 135.8 L Creatine Kinase 516 H Discharge - Discharge Clinical Impression: Hematemesis of unknown cause Alzheimer's dementia with behavioral disturbance Qualifiers: Alzheimer's disease onset: late-onset Qualified Code(s): G30.1 - Alzheimer's disease with late onset Condition: Stable Disposition: ADMITTED OBSERVATION Admitting Provider: Charisse (Hospitalist) Unit Admitted: Medical Floor
[2020-03-22] MEDS ORDERED: PANTOPRAZOLE SODIUM 40 MG VIAL IV ONE (00:48)
--- NOTE | 2020-03-22 01:54 | PDOC H&P ---
History of Present Illness Admission Date/PCP: BRICE HOLLAND MD History of Present Illness: KARLA TAPIA is a 79 year old male with a history of Alzheimer's dementia with behavioral disturbance who was just discharged a day or 2 ago from this hospital after being treated for pneumonia. It was recommended at that time that the patient go to a facility, and it seems that relatively recently a facility has been found, but apparently patient's did not want to send him there for one reason or another, possibly due to financial reasons. Therefore, she took him home with home health. She then called EMS yesterday evening to bring the patient back to the hospital saying that he was coughing. He had an episode of vomiting in the ER but is otherwise just been a little bit agitated. He had to get some Haldol. It looks like some of the medications that he had been previously recommended to be on by [facility] were not continued when he was discharged. It seems that the reason he is actually here is because he is too difficult for his to take care of at home. His lab work-up was otherwise unremarkable and his vital signs are stable. Past Medical History Cardiac Medical History: Reports: Hyperlipidema Psychiatric Medical History: Reports: Dementia Denies: Depression Social History Smoking Status: Unknown if Ever Smoked Family History Family History: Reviewed & Not Pertinent Parental Family History Reviewed: No - Unable to obtain Children Family History Reviewed: Unknown Sibling(s) Family History Reviewed.: Unknown Medication/Allergy Home Medications: Doxazosin Mesylate [Cardura 4 mg Tablet] 4 mg PO DAILY 03/03/20 Simvastatin [Zocor 10 mg Tablet] 20 mg PO QHS 03/03/20 Buspirone HCl [Buspar 10 mg Tablet] 5 mg PO BID #20 tablet 03/12/20 Acetaminophen [Tylenol 325 mg Tablet] 650 mg PO Q4HP PRN tablet 03/21/20 Aspirin [Ecotrin 81 mg EC Tablet] 81 mg PO DAILY tabec 03/21/20 Divalproex Sodium [Depakote] 500 mg PO BID #20 tablet. 03/21/20 Doxycycline Hyclate [Vibramycin 100 mg Tablet] 100 mg PO Q12 #14 tablet 03/21/20 Lisinopril [Prinivil 5 mg Tablet] 2.5 mg PO DAILY #30 tablet 03/21/20 Metoprolol Tartrate [Lopressor 25 mg Tablet] 12.5 mg PO Q12 #30 tablet 03/21/20 Allergies/Adverse Reactions: No Known Allergies Allergy (Verified 03/09/20 18:03) Review of Systems ROS unobtainable: Due to mental status Physical Exam Vital Signs: Temp Pulse Resp BP Pulse Ox 98.9 F 24 H 116/67 100 03/21/20 19:55 03/21/20 21:08 03/21/20 21:08 03/22/20 00:17 General appearance: PRESENT: no acute distress, disheveled Head exam: PRESENT: atraumatic, normocephalic Eye exam: ABSENT: conjunctival injection, nystagmus, scleral icterus Ear exam: PRESENT: normal external ear exam Mouth exam: PRESENT: dry mucosa Neck exam: ABSENT: carotid bruit, JVD, lymphadenopathy, tenderness Respiratory exam: PRESENT: rhonchi - Right base, unlabored. ABSENT: accessory muscle use, chest wall tenderness, crackles, prolonged expiratory phas, symmetrical, tachypnea, wheezes Cardiovascular exam: PRESENT: RRR, +S1, +S2 Pulses: PRESENT: normal carotid pulses Vascular exam: PRESENT: normal capillary refill GI/Abdominal exam: PRESENT: normal bowel sounds, soft. ABSENT: distended, guarding, rebound, tenderness Extremities exam: ABSENT: clubbing, pedal edema Musculoskeletal exam: PRESENT: normal inspection. ABSENT: deformity Neurological exam: PRESENT: awake, oriented to person Psychiatric exam: PRESENT: flat affect Skin exam: PRESENT: dry, warm Results Laboratory Results: 03/21/20 21:47 03/21/20 21:47 03/21/20 03/21/20 21:47 21:47 WBC 5.2 RBC 4.16 L Hgb 13.2 L Hct 38.8 MCV 93 MCH 31.8 MCHC 34.1 RDW 13.7 Plt Count 175 Seg Neutrophils % 67.6 Sodium 135.8 L Potassium 4.2 Chloride 102 Carbon Dioxide 27 Anion Gap 7 BUN 12 Creatinine 1.11 Est GFR ( Amer) > 60 Glucose 101 Calcium 9.3 Total Bilirubin 0.5 AST 47 Alkaline Phosphatase 63 Total Protein 6.9 Albumin 4.3 03/21/20 21:47 Creatine Kinase 516 H Impressions: Chest X-Ray 03/21/20 21:12 IMPRESSION: 1. Improved aeration since 03/17/2020. No new infiltrates. Assessment and Plan - Diagnosis (1) Alzheimer's dementia with behavioral disturbance Qualifiers: Alzheimer's disease onset: late-onset Qualified Code(s): G30.1 - Alzheimer's disease with late onset; F02.81 - Dementia in other diseases classified elsewhere with behavioral disturbance Is this a current diagnosis for this admission?: Yes Plan: This appears to be the real reason why he is here. Apparently he is very combative at home. Some of his medications, namely his Risperdal and clonidine, were not continued whenever he went home. I think with his blood pressure being where it is at the low end of normal he does not need to be on the clonidine, but the Risperdal would certainly be indicated here. We will continue his Dep akote. We will avoid benzodiazepines as this was behavioral health recommendation previously. They also recommended avoiding certain antipsychotics, but he was agitated in the ER and a dose of Haldol certainly settled him down. Will consult case management for discharge planning, including the possibility of getting him placed into a facility. - Time Anticipated Discharge Disposition: Assisted Living with Home Health Services Anticipated Discharge Timeframe: when bed available
[2020-03-22] MEDS ORDERED: PANTOPRAZOLE SODIUM 40 MG TABLET.DR PO SCH (06:00)
[2020-03-22] MEDS ORDERED: RISPERIDONE 0.25 MG TABLET PO SCH (10:00)
[2020-03-22 12:15] VITALS: BP 146/59
--- NOTE | 2020-03-25 08:34 | PDOC DISCHARGE SUMMARY ---
Impression - Admit/DC Date/PCP Admission Date/Primary Care Provider: 03/22/20 01:52 RENA MADRID MD Discharge Date: 03/22/20 - Discharge Diagnosis (1) Alzheimer's dementia with behavioral disturbance Is this a current diagnosis for this admission?: Yes - Additional Information Discharge Diet: Cardiac Discharge Activity: Activity As Tolerated Referrals: RENA MADRID MD [Primary Care Provider] - 03/28/20 2:00 pm Prescriptions: Risperidone [Risperdal 0.25 mg Tablet] 0.25 mg PO BID #60 tablet Home Medications: Doxazosin Mesylate [Cardura 4 mg Tablet] 4 mg PO DAILY 03/03/20 Simvastatin [Zocor 10 mg Tablet] 20 mg PO QHS 03/03/20 Buspirone HCl [Buspar 10 mg Tablet] 5 mg PO BID #20 tablet 03/12/20 Aspirin [Ecotrin 81 mg EC Tablet] 81 mg PO DAILY 03/22/20 Clonidine [Catapres-Tts 1 (0.1 mg/24 Hr) Transderm Patch] 1 patch TD Q7D 03/22/20 Divalproex Sodium [Depakote ER 500 mg Tab.sr] 500 mg PO Q12 03/22/20 Doxycycline Hyclate [Vibramycin 100 mg Tablet] 100 mg PO Q12 03/22/20 Lisinopril [Prinivil 5 mg Tablet] 2.5 mg PO DAILY 03/22/20 Lorazepam [Ativan 0.5 mg Tablet] 0.5 mg PO BID 03/22/20 Metoprolol Tartrate [Lopressor 25 mg Tablet] 12.5 mg PO Q12 03/22/20 Risperidone [Risperdal 0.25 mg Tablet] 0.25 mg PO BID #60 tablet 03/22/20 Triazolam 0.25 mg PO DAILY 03/22/20 History of Present Illiness History of Present Illness: Per H&P by Dr. Mcqueen: KARLA TAPIA is a 79 year old male with a history of Alzheimer's dementia with behavioral disturbance who was just discharged a day or 2 ago from this hospital after being treated for pneumonia. It was recommended at that time that the patient go to a facility, and it seems that relatively recently a facility has been found, but apparently patient's did not want to send him there for one reason or another, possibly due to financial reasons. Therefore, she took him home with home health. She then called EMS yesterday evening to bring the patient back to the hospital saying that he was coughing. He had an episode of vomiting in the ER but is otherwise just been a little bit agitated. He had to get some Haldol. It looks like some of the medications that he had been previously recommended to be on by [facility] were not continued when he was discharged. It seems that the reason he is actually here is because he is too difficult for his to take care of at home. His lab work-up was otherwise unremarkable and his vital signs are stable. Hospital Course Hospital Course: Patient was admitted to the medical floor. His home medication regiment for management of his Alzheimer's with behavioral disturbances were renewed. Patient was provided a sitter. He does tend to wander, but was easily redirected and had no further behavioral disturbances. It is likely that some of his agitation experienced at home was related to environmental changes and, perhaps, adjustments to the timing of his medication regiment with regard to management while inpatient versus at home. Vital signs are stable, laboratory evaluation is benign, chest imaging is unremarkable, and exam reassuring. He is medically stable for discharge and has maximized the hospital benefit as related to the RLL PNA treated during his prior admission. He has no new acute conditions warranting a continued hospital stay. Patient's had determined during his prior admission (just 36 hrs ago) that she did not wish for him to be placed in long-term/memory care; caregiver at the home confirms that this has not changed. Therefore, he is discharged back to home with home health services and palliative care referral. Physical Exam Vital Signs: Temp Pulse Resp BP Pulse Ox 98.6 F 92 16 146/59 H 97 03/22/20 12:12 03/22/20 12:12 03/22/20 12:12 03/22/20 12:12 03/22/20 12:12 General appearance: PRESENT: no acute distress, cooperative, hard of hearing, well-developed, well-nourished Head exam: PRESENT: atraumatic, normocephalic Eye exam: PRESENT: conjunctiva pink, EOMI, PERRLA. ABSENT: scleral icterus Mouth exam: PRESENT: moist, tongue midline Respiratory exam: PRESENT: clear to auscultation nikita, symmetrical, unlabored. ABSENT: rales, rhonchi, wheezes Cardiovascular exam: PRESENT: RRR. ABSENT: diastolic murmur, rubs, systolic murmur Pulses: PRESENT: normal dorsalis pedis pul Vascular exam: PRESENT: normal capillary refill Extremities exam: PRESENT: full ROM. ABSENT: calf tenderness, clubbing, pedal edema Musculoskeletal exam: PRESENT: ambulatory Neurological exam: PRESENT: alert, awake, oriented to person, CN II-XII grossly intact, other - at baseline mentation. ABSENT: motor sensory deficit Skin exam: PRESENT: dry, intact, warm. ABSENT: cyanosis, rash Results Laboratory Results: WBC 5.2 10^3/uL (4.0-10.5) 03/21/20 21:47 RBC 4.16 10^6/uL (4.35-5.55) L 03/21/20 21:47 Hgb 13.2 g/dL (13.5-17.0) L 03/21/20 21:47 Hct 38.8 % (37.9-51.0) 03/21/20 21:47 MCV 93 fl (80-97) 03/21/20 21:47 MCH 31.8 pg (27.0-33.4) 03/21/20 21:47 MCHC 34.1 g/dL (32.0-36.0) 03/21/20 21:47 RDW 13.7 % (11.5-14.0) 03/21/20 21:47 Plt Count 175 10^3/uL (150-450) 03/21/20 21:47 Lymph % (Auto) 18.7 % (13-45) 03/21/20 21:47 [place] % (Auto) 11.4 % (3-13) 03/21/20 21:47 Eos % (Auto) 1.5 % (0-6) 03/21/20 21:47 Baso % (Auto) 0.8 % (0-2) 03/21/20 21:47 Absolute Neuts (auto) 3.5 10^3/uL (1.7-8.2) 03/21/20 21:47 Absolute Lymphs (auto) 1.0 10^3/uL (0.5-4.7) 03/21/20 21:47 Absolute Monos (auto) 0.6 10^3/uL (0.1-1.4) 03/21/20 21:47 Absolute Eos (auto) 0.1 10^3/uL (0.0-0.6) 03/21/20 21:47 Absolute Basos (auto) 0.0 10^3/uL (0.0-0.2) 03/21/20 21:47 Seg Neutrophils % 67.6 % (42-78) 03/21/20 21:47 Sodium 135.8 mmol/L (137-145) L 03/21/20 21:47 Potassium 4.2 mmol/L (3.6-5.0) 03/21/20 21:47 Chloride 102 mmol/L (98-107) 03/21/20 21:47 Carbon Dioxide 27 mmol/L (22-30) 03/21/20 21:47 Anion Gap 7 (5-19) 03/21/20 21:47 BUN 12 mg/dL (7-20) 03/21/20 21:47 Creatinine 1.11 mg/dL (0.52-1.25) 03/21/20 21:47 Est GFR ( Amer) > 60 (>60) 03/21/20 21:47 Est GFR (MDRD) Non-Af > 60 (>60) 03/21/20 21:47 Glucose 101 mg/dL (75-110) 03/21/20 21:47 Calcium 9.3 mg/dL (8.4-10.2) 03/21/20 21:47 Total Bilirubin 0.5 mg/dL (0.2-1.3) 03/21/20 21:47 Direct Bilirubin 0.1 mg/dL (0.0-0.4) 03/21/20 21:47 Neonat Total Bilirubin Not Reportable 03/21/20 21:47 Neonat Direct Bilirubin Not Reportable 03/21/20 21:47 Neonat Indirect Bili Not Reportable 03/21/20 21:47 AST 47 U/L (17-59) 03/21/20 21:47 ALT 45 U/L (<50) 03/21/20 21:47 Alkaline Phosphatase 63 U/L (38-126) 03/21/20 21:47 Creatine Kinase 516 U/L (55-170) H 03/21/20 21:47 Total Protein 6.9 g/dL (6.3-8.2) 03/21/20 21:47 Albumin 4.3 g/dL (3.5-5.0) 03/21/20 21:47 POC Gastric Occult Bld POSITIVE (NEGATIVE) 03/21/20 22:33 Impressions: Chest X-Ray 03/21/20 21:12 IMPRESSION: 1. Improved aeration since 03/17/2020. No new infiltrates. Plan Plan of Treatment: Patient is discharged home, in stable condition, to the care of family with home health services. Patient should follow-up with his primary care provider within 1 week. Strongly encourage family members PCP to consider long-term placement. Take medications as prescribed. Return to the emergency department as needed for concerning symptoms. Time Spent: Greater than 30 Minutes Stroke Is this a Stroke Patient?: No Acute Heart Failure - Is this a Heart Failure Patient?: No
== END 2020-03-22 14:30 | disposition home health service (06) ==
LOC: ER 19:38 → EH 03-22 01:52 → 3S 03-22 03:03
PROVIDERS: ADMIT Family Medicine; ATTEND Registered Nurse
DX: G30.1 Alzheimer's disease with late onset (principal); F02.81 Dementia in other diseases classified elsewhere, unspecified severity, with behavioral disturbance; K92.0 Hematemesis; R05 Cough; E78.5 Hyperlipidemia, unspecified; Z79.899 Other long term (current) drug therapy; Z79.82 Long term (current) use of aspirin
CPT/HCPCS: 99285; 96372; 96374; 96375; 36415; 82550; 85025; 82271; 80053; 71045; G0378 ×2; J1630; J2060; C9113; J2405; A9270 ×2; J3490

== ENCOUNTER 2020-03-23 14:30 | Emergency (ER) | payer MEDICARE, OTHER ==
--- NOTE | 2020-03-23 15:10 | RADIOLOGY REPORT (SQ) ---
EXAM DESCRIPTION: CHEST SINGLE VIEW IMAGES COMPLETED DATE/TIME: 03/23/2020 3:00 pm REASON FOR STUDY: sob COMPARISON: 03/21/2020 EXAM PARAMETERS: NUMBER OF VIEWS: One view. TECHNIQUE: Single frontal radiographic view of the chest acquired. RADIATION DOSE: NA LIMITATIONS: Low lung volumes. FINDINGS: LUNGS AND PLEURA: No opacities, masses or pneumothorax. No pleural effusion. MEDIASTINUM AND HILAR STRUCTURES: No masses. Contour normal. HEART AND VASCULAR STRUCTURES: Heart normal in size. Normal vasculature. BONES: No acute findings. HARDWARE: None in the chest. OTHER: No other significant finding. IMPRESSION: Negative chest allowing for low lung volumes. TECHNICAL DOCUMENTATION: JOB ID: [id number] 2010 [employer]- All Rights Reserved Reading location - IP/workstation name: [email or web address]
--- NOTE | 2020-03-23 15:20 | ER Document Report ---
ED General - General Chief Complaint: Cough Stated Complaint: DIFFICULTY BREATHING Time Seen by Provider: 03/23/20 14:47 Primary Care Provider: RENA MADRID MD [Primary Care Provider] - Follow up as needed Notes: 79-year-old male discharged in the hospital yesterday after admission for what was thought to be a medical issue but what ended up being an issue of dementia with behavioral disturbance and unable to be cared for at home. There was apparently some social work and discharge planning although the patient ended up being discharged home and based on my conversation with hospitalist I cannot tell what was actually done. His brought him here today by EMS and said that she cannot take care of anymore. He is demented cannot give a history and only complains of a dry cough. Of note his medical work-up on last admission was essentially normal. TRAVEL OUTSIDE OF THE [place] IN LAST 30 DAYS: No - Related Data Allergies/Adverse Reactions: No Known Allergies Allergy (Verified 03/23/20 15:30) Past Medical History - Social History Smoking Status: Unknown if Ever Smoked Frequency of alcohol use: None Drug Abuse: None Family History: Reviewed & Not Pertinent Patient has homicidal ideation: No - Past Medical History Cardiac Medical History: Reports: Hx Hypercholesterolemia Malignancy Medical History: Reports Hx Prostate Cancer Psychiatric Medical History: Reports: Hx Anxiety, Hx Dementia Denies: Hx Depression - Immunizations Hx Diphtheria, Pertussis, Tetanus Vaccination: Yes Review of Systems - Review of Systems Notes: REVIEW OF SYSTEMS Dementia PHYSICAL EXAMINATION General: No acute distress, well-nourished Head: Atraumatic, normocephalic ENT: Mouth normal, oropharynx moist, no exudates or tonsillar enlargement Eyes: Conjunctiva normal, pupils equal, lids normal Neck: No JVD, supple, no guarding CVS: Normal rate, regular rhythm, no murmurs Resp: No resp distress, equal and normal breath sounds bilaterally GI: Nondistended, soft, no tenderness to palpation, no rebound or guarding Ext: No deformities, no edema, normal range of motion in upper and lower ext Back: No CVA or midline TTP Skin: No rash, warm Lymphatic: No lymphadeopathy noted Neuro: alert, climbing out of bed, speaks some real words but mostly gibberish and does not follow commands. The patient is climbing out of bed actively strong with all 4 extremities. -: Yes ROS unobtainable due to patient's medical condition Physical Exam - Vital signs Vitals: Temp 98.2 F 03/23/20 14:30 Course - Re-evaluation Re-evalutation: 03/23/20 15:48 79-year-old with known dementia presents with delirium/dementia with behavioral disturbance with no acute cause on ED work-up and labs as well as imaging. Stro ke and bleed been essentially ruled out. I will give him some Geodon to calm him down. I read his chart and it seems that this is been a chronic recurrent issue and he needs to be placed in a facility. I discussed with Dr. Pimentel for the hospitalist service and we agreed he does not need to be admitted medically. I am talking with our ED charge nurse regarding involving social work and case management and will try to avoid him being here in the ED for extended period of time, but he is in a situation where this may end up being the case. 03/23/20 16:35 Discussed with social work. The patient already has home health, and case management with the but the is refusing to place him. He cannot be admitted to the hospital today in fact I think that be harmful. He will be discharged home with appropriate service and follow-up with primary care. I have discussed with the patient there likely diagnosis, aftercare plan, follow- up plans and my usual and customary return precautions. They verbalized understanding of this. 03/23/20 17:15 Social workers discussed with the patient's caregiver who will come pick him up. Recommended outpatient placement options. - Vital Signs Vital signs: Temp Pulse Resp BP Pulse Ox 98.2 F 21 H 155/64 H 98 03/23/20 14:30 03/23/20 16:21 03/23/20 16:21 03/23/20 16:21 - Laboratory Result Diagrams: 03/23/20 15:05 03/23/20 16:00 Laboratory results interpreted by me: 03/23/20 03/23/20 15:05 16:00 RBC 4.29 L Sodium 133.7 L Creatine Kinase 314 H - Diagnostic Test Radiology reviewed: Image reviewed, Reports reviewed Discharge - Discharge Clinical Impression: Dementia with behavioral disturbance Qualifiers: Dementia type: unspecified type Qualified Code(s): F03.91 - Unspecified dementia with behavioral disturbance Condition: Good [facility] Referrals: RENA MADRID MD [Primary Care Provider] - Follow up as needed
[2020-03-23] MEDS ORDERED: ZIPRASIDONE MESYLATE INJ/PF 20 MG SDV IM ONE (15:39)
[2020-03-23 15:40] LABS: HEMATOCRIT 39.9 % (37.9-51.0); HEMOGLOBIN 13.6 g/dL (13.5-17.0); MEAN CORPUSCULAR HEMOGLOBIN 31.8 pg (27.0-33.4); MEAN CORPUSCULAR HGB CONC 34.2 g/dL (32.0-36.0); MEAN CORPUSCULAR VOLUME 93 fl (80-97); RED BLOOD COUNT 4.29 10^6/uL (4.35-5.55); RED CELL DISTRIBUTION WIDTH 13.4 % (11.5-14.0); WHITE BLOOD COUNT 5.9 10^3/uL (4.0-10.5)
[2020-03-23 16:19] LABS: ABSOLUTE LYMPHOCYTES# (MANUAL) 1.1 10^3/uL (0.5-4.7); ABSOLUTE MONOCYTES # (MANUAL) 0.5 10^3/uL (0.1-1.4); BASOPHILS % (MANUAL) 0 % (0-2); EOSINOPHILS % (MANUAL) 3 % (0-6); LYMPHOCYTES % (MANUAL) 18 % (13-45); MONOCYTES % (MANUAL) 9 % (3-13); SEGMENTED NEUTROPHILS % (MAN) 70 % (42-78); TOTAL CELLS COUNTED 100
[2020-03-23 16:23] LABS: BURR CELLS 1+; OVALOCYTES SLIGHT; PLATELET COMMENT ADEQUATE; POLYCHROMASIA SLIGHT
[2020-03-23 16:24] LABS: PLATELET COUNT 227 10^3/uL (150-450)
[2020-03-23 16:33] LABS: ALBUMIN 3.8 g/dL (3.5-5.0); ALKALINE PHOSPHATASE 56 U/L (38-126); ANION GAP 5 (5-19); ASPARTATE AMINO TRANSFERASE 37 U/L (17-59); BILIRUBIN,TOTAL 0.5 mg/dL (0.2-1.3); BLOOD UREA NITROGEN 12 mg/dL (7-20); CALCIUM 8.8 mg/dL (8.4-10.2); CARBON DIOXIDE 27 mmol/L (22-30); CHLORIDE 102 mmol/L (98-107); CREATINE KINASE 314 U/L (55-170); GLUCOSE 100 mg/dL (75-110); POTASSIUM 4.1 mmol/L (3.6-5.0); TOTAL PROTEIN 6.5 g/dL (6.3-8.2)
[2020-03-23 16:46] LABS: TROPONIN I < 0.012 ng/mL
[2020-03-23 18:20] VITALS: BP 140/87
--- NOTE | 2020-03-23 22:59 | EKG REPORT ---
SEVERITY:- NORMAL ECG - SINUS RHYTHM : Confirmed by: Ludy Blackwell MD 23-Mar-2020 22:58:02
== END 2020-03-23 18:34 ==
LOC: ER 14:30
DX: F03.91 Unspecified dementia, unspecified severity, with behavioral disturbance (principal); R05 Cough; Z85.46 Personal history of malignant neoplasm of prostate
CPT/HCPCS: 93005; 99285; 96372; 36415; 82553; 82550; 85025; 80053; 84484; 71045; 93010; J3486

== ENCOUNTER 2020-03-23 23:24 | Emergency (ER) | payer MEDICARE ==
--- NOTE | 2020-03-23 23:55 | ER Document Report ---
ED General - General Chief Complaint: Psych Problem Stated Complaint: DIFFICULTY BREATHING Time Seen by Provider: 03/23/20 23:49 Primary Care Provider: RENA MADRID MD [Primary Care Provider] - Follow up as needed Notes: 79-year-old male presents with shortness of breath. His said he was short of breath but EMS found no signs of shortness of breath and he does not appear short of breath. This patient has been here 3 times in the last 5 days for social/plate misplacement issues, was actually admitted to the hospital and was supposed be placed had a bed at a memory care facility but the turned it down. He then re-presented earlier today with shortness of breath was seen by me had a full medical work-up showing nothing acute and was discharged back home after the senior research engineer and said they would take him. Apparently his woke up from a nap found him home and called EMS again who brought him in again. TRAVEL OUTSIDE OF THE [place] IN LAST 30 DAYS: No - Related Data Allergies/Adverse Reactions: No Known Allergies Allergy (Verified 03/23/20 15:30) Past Medical History - General Information source: Patient, Emergency Med Personnel - Social History Smoking Status: Never Smoker Family History: Reviewed & Not Pertinent - Past Medical History Cardiac Medical History: Reports: Hx Hypercholesterolemia Malignancy Medical History: Reports Hx Prostate Cancer Psychiatric Medical History: Reports: Hx Anxiety, Hx Dementia Denies: Hx Depression - Immunizations Hx Diphtheria, Pertussis, Tetanus Vaccination: Yes Review of Systems - Review of Systems Notes: REVIEW OF SYSTEMS Dementia PHYSICAL EXAMINATION General: [place] Head: Atraumatic, normocephalic ENT: Mouth normal, oropharynx moist, no exudates or tonsillar enlargement Eyes: Conjunctiva normal, pupils equal, lids normal Neck: No JVD, supple, no guarding CVS: Normal rate, regular rhythm, no murmurs Resp: No resp distress, equal and normal breath sounds bilaterally GI: Nondistended, soft, no tenderness to palpation, no rebound or guarding Ext: No deformities, no edema, normal range of motion in upper and lower ext Back: No CVA or midline TTP Skin: No rash, warm Lymphatic: No lymphadeopathy noted Neuro: Awake, alert. Memory impaired face symmetric. Course - Re-evaluation Re-evalutation: 03/23/20 23:54 Dementia with behavioral disturbance recent negative work-up for delirium or medical causes No need to repeat Social hold for now. Discussed with Dr. Mcqueen, who knows this patient, and agrees that there is no reason to medically admit him and he would not require 2 midnights to go to a memory facility only in acute rehab which she is not in need of. Will defer to the morning and discuss with morning social work placement team. Discharge - Discharge Clinical Impression: Dementia with behavioral disturbance Qualifiers: Dementia type: unspecified type Qualified Code(s): F03.91 - Unspecified dementia with behavioral disturbance Condition: Good Disposition: SNF-Other Referrals: RENA MADRID MD [Primary Care Provider] - Follow up as needed
[2020-03-24] MEDS ORDERED: CLONIDINE 0.1 MG/24 HR PATCH.TDWK TD ONE (00:45)
[2020-03-24] MEDS: QUETIAPINE FUMARATE 25 MG TABLET PO SCH ×2 (07:02→21:14)
[2020-03-24] MEDS ORDERED: BUSPIRONE HCL 10 MG TABLET PO SCH (10:00)
[2020-03-24] MEDS ORDERED: LISINOPRIL 5 MG TABLET PO SCH (10:00)
[2020-03-24] MEDS: METOPROLOL TARTRATE 25 MG TABLET PO SCH ×2 (10:35→19:18)
[2020-03-24] MEDS: RISPERIDONE 0.25 MG TABLET PO SCH ×3 (10:37→19:19)
--- NOTE | 2020-03-24 16:00 | RADIOLOGY REPORT (SQ) ---
EXAM DESCRIPTION: CHEST 2 VIEWS IMAGES COMPLETED DATE/TIME: 03/24/2020 3:47 pm REASON FOR STUDY: cough, possible aspiration COMPARISON: Chest radiograph 03/23/2020 TECHNIQUE: Frontal and lateral radiographic views of the chest acquired. NUMBER OF VIEWS: Two view. LIMITATIONS: None. FINDINGS: LUNGS AND PLEURA: No opacities, masses or pneumothorax. No pleural effusion. MEDIASTINUM AND HILAR STRUCTURES: No masses or contour abnormalities. HEART AND VASCULAR STRUCTURES: Heart normal size. No evidence for failure. BONES: No acute findings. HARDWARE: None in the chest. OTHER: No other significant finding. IMPRESSION: NO SIGNIFICANT RADIOGRAPHIC FINDING IN THE CHEST. TECHNICAL DOCUMENTATION: JOB ID: [id number] 2010 [employer]- All Rights Reserved Reading location - IP/workstation name: [email or web address]
--- NOTE | 2020-03-24 17:23 | ER Document Report ---
Doctor's Note Notes: 03/24/20 17:18 This 79-year-old male who has recently been seen for pneumonia, was brought back to the emergency department by his for continued concerns over his health and difficulty swallowing. She is concerned that he may be aspirating. In talking to the patient he is not able to answer my questions at this time, he is having some drooling. We did have nursing perform a bedside swallow study which he failed. Chest x-ray does not show any aspiration. GENERAL: Alert, smiling, does not follow commands. No acute distress. Sitting up in chair beside bed. HEAD: Normocephalic, atraumatic EYES: Pupils equal, round and reactive to light, extraocular movements intact. ENT: Oral mucosa moist, tongue midline. Drooling. NECK: Full range of motion, supple, trachea midline. LUNGS: Clear to auscultation bilaterally, no wheezes, rales or rhonchi, no respiratory distress. HEART: Regular rate and rhythm, no murmurs, gallops, rubs. ABDOMEN: Soft, nontender, nondistended, bowel sounds present in all 4 quadrants. EXTREMITIES: Moves all 4 extremities spontaneously, no edema. No cyanosis. NEUROLOGICAL: Non verbal for me, drooling but no facial droop. Moves all 4 extremities spontaneously. SKIN: Warm, Dry. I discussed the case with hospitalist and with discharge planning. Hospitalist will consult in the emergency department for further evaluation of his dysphagia. They do not feel he meets admission criteria at this time. Discharge planning is continuing to work on resources and placement for this patient. We will continue to work with hospitalist service and discharge planning for further care of this patient. Aside from addressing his dysphagia no other acute interventions needed at this time.
[2020-03-24] MEDS ORDERED: LORAZEPAM INJ 2 MG/1 ML VIAL IV PRN (17:41)
--- NOTE | 2020-03-24 18:14 | RADIOLOGY REPORT (SQ) ---
EXAM DESCRIPTION: CT HEAD WITHOUT IMAGES COMPLETED DATE/TIME: 03/24/2020 6:02 pm REASON FOR STUDY: dyspha COMPARISON: 03/03/2020 TECHNIQUE: Axial images acquired through the brain without intravenous contrast. Images reviewed wit h bone, brain and subdural windows. Images stored on PACS. All CT scanners at this facility use dose modulation, iterative reconstruction, and/or weight based d osing when appropriate to reduce radiation dose to as low as reasonably achievable (ALARA). [facility]: Dose Right [facility]: CareDose [facility]: Dose Right [facility]: Teradose 4D [facility]: Smart [employer] RADIATION DOSE: CT Rad equipment meets quality standard of care and radiation dose reduction techniq ues were employed. CTDIvol: 53.2 mGy. DLP: 964 mGy-cm.. LIMITATIONS: None. FINDINGS: VENTRICLES: Normal size and contour. CEREBRUM: No masses. No hemorrhage. No midline shift. Age appropriate white matter. No evidence for a cute infarction. CEREBELLUM: No masses. No hemorrhage. No alteration of density. No evidence for acute infarction. EXTRA-AXIAL SPACES: No fluid collections. ORBITS AND GLOBE: No intra- or extraconal masses. Normal contour of globe without masses. CALVARIUM: No fracture. PARANASAL SINUSES: No fluid or mucosal thickening. SOFT TISSUES: No mass or hematoma. OTHER: No other significant finding. IMPRESSION: NO ACUTE INTRACRANIAL FINDINGS. EVIDENCE OF ACUTE STROKE: NO. TECHNICAL DOCUMENTATION: JOB ID: [id number] [place]-72 Quality ID # [id number]: Final reports with documentation of one or more dose reduction techniques (e.g., Au tomated exposure control, adjustment of the mA and/or kV according to patient size, use of iterative reconstruction technique) 2010 [employer]- All Rights Reserved Reading location - IP/workstation name: [email or web address]
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
[2020-03-24 19:20] LABS: ALBUMIN 4.9 g/dL (3.5-5.0); ALKALINE PHOSPHATASE 68 U/L (38-126); ANION GAP 11 (5-19); ASPARTATE AMINO TRANSFERASE 40 U/L (17-59); BILIRUBIN,DIRECT 0.1 mg/dL (0.0-0.4); BILIRUBIN,TOTAL 0.6 mg/dL (0.2-1.3); BLOOD UREA NITROGEN 15 mg/dL (7-20); CALCIUM 9.9 mg/dL (8.4-10.2); CARBON DIOXIDE 26 mmol/L (22-30); CHLORIDE 101 mmol/L (98-107); GLUCOSE 101 mg/dL (75-110); POTASSIUM 4.4 mmol/L (3.6-5.0)
[2020-03-24] MEDS ORDERED: SCOPOLAMINE HYDROBROMIDE 1.5 MG PATCH.TD72 ONE (20:49)
[2020-03-24] MEDS: SCOPOLAMINE HYDROBROMIDE 1.5 MG PATCH.TD72 TD SCH (21:09)
[2020-03-24] MEDS: BUSPIRONE HCL 10 MG TABLET PO SCH (21:13)
[2020-03-24 21:15] LABS: ABSOLUTE BASOPHILS # (AUTO) 0.1 10^3/uL (0.0-0.2); ABSOLUTE EOSINOPHILS # (AUTO) 0.1 10^3/uL (0.0-0.6); ABSOLUTE MONOCYTES (AUTO) 0.7 10^3/uL (0.1-1.4); ABSOLUTE NEUT (AUTO) 4.2 10^3/uL (1.7-8.2); BASOPHILS % (AUTO) 1.1 % (0-2); EOSINOPHILS % (AUTO) 1.1 % (0-6); HEMATOCRIT 40.7 % (37.9-51.0); HEMOGLOBIN 13.9 g/dL (13.5-17.0); LYMPHOCYTES % (AUTO) 16.7 % (13-45); MEAN CORPUSCULAR HEMOGLOBIN 31.6 pg (27.0-33.4); MEAN CORPUSCULAR HGB CONC 34.2 g/dL (32.0-36.0); MEAN CORPUSCULAR VOLUME 93 fl (80-97); MONOCYTES % (AUTO) 12.4 % (3-13); PLATELET COUNT 280 10^3/uL (150-450); RED BLOOD COUNT 4.41 10^6/uL (4.35-5.55); RED CELL DISTRIBUTION WIDTH 13.4 % (11.5-14.0); SEGMENTED NEUTROPHILS % (AUTO) 68.7 % (42-78); TOTAL CELLS COUNTED % (AUTO) 100 %; WHITE BLOOD COUNT 6.1 10^3/uL (4.0-10.5)
[2020-03-24] MEDS: SIMVASTATIN 10 MG TABLET PO SCH (21:15)
[2020-03-24] MEDS: DIVALPROEX SODIUM 500 MG TAB.SR.24H PO SCH (21:23)
[2020-03-25] MEDS: BUSPIRONE HCL 10 MG TABLET PO SCH ×2 (09:28→21:59)
[2020-03-25] MEDS: ASPIRIN 81 MG TABLET, CHEWABLE PO SCH (09:28)
[2020-03-25] MEDS: RISPERIDONE 0.25 MG TABLET PO SCH ×3 (09:28→18:10)
[2020-03-25] MEDS: DIVALPROEX SODIUM 500 MG TAB.SR.24H PO SCH (09:29)
[2020-03-25] MEDS: METOPROLOL TARTRATE 25 MG TABLET PO SCH ×2 (09:38→18:56)
[2020-03-25] MEDS: LISINOPRIL 5 MG TABLET PO SCH (09:38)
[2020-03-25] MEDS: DOXAZOSIN MESYLATE 4 MG TABLET PO SCH (09:38)
--- NOTE | 2020-03-25 15:43 | PDOC PROGRESS REPORT ---
Subjective Progress Note for:: 03/25/20 Subjective:: KARLA TAPIA is a 79 year old male with a past medical history significant for advanced dementia, HTN, HLD, and recent admission for a RLL pneumonia. Patient was seen in afternoon rounds. He was found resting in bed, comfortably, on room air. He was sleeping but woke easily when I said his name. He smiled at me did not answer questions. He was noted to fall back to sleep. He does appear to be comfortable and is not noted to be in any acute distress at this time. Per nursing patient continues to have difficulty with oral secretions, difficulty with large pills, but no overt evidence of aspiration. Reason For Visit: DIFFICULTY BREATHING Physical Exam Vital Signs: Temp Pulse Resp BP Pulse Ox 98.3 F 78 16 109/50 L 97 03/24/20 22:02 03/24/20 22:02 03/24/20 22:02 03/24/20 22:02 03/24/20 22:02 General appearance: PRESENT: no acute distress, cooperative, well-developed, well-nourished Head exam: PRESENT: atraumatic, normocephalic Eye exam: PRESENT: conjunctiva pink, EOMI, PERRLA. ABSENT: scleral icterus Mouth exam: PRESENT: moist, tongue midline, other - difficulty managing oral secretions Respiratory exam: PRESENT: clear to auscultation nikita, symmetrical, unlabored, other. ABSENT: rales, rhonchi, wheezes Cardiovascular exam: PRESENT: RRR. ABSENT: diastolic murmur, rubs, systolic murmur Pulses: PRESENT: normal dorsalis pedis pul Vascular exam: PRESENT: normal capillary refill Extremities exam: PRESENT: full ROM. ABSENT: calf tenderness, clubbing, pedal edema Neurological exam: PRESENT: alert, awake, oriented to person, CN II-XII grossly intact, other - Baseline mentation; wanders but redirectable. ABSENT: motor sensory deficit Psychiatric exam: PRESENT: flat affect, normal mood. ABSENT: homicidal ideation, suicidal ideation Skin exam: PRESENT: dry, intact, warm. ABSENT: cyanosis, rash Results Laboratory Results: 03/24/20 21:07 03/24/20 18:55 03/24/20 03/24/20 03/24/20 18:55 18:55 18:55 WBC Cancelled RBC Cancelled Hgb Cancelled Hct Cancelled MCV Cancelled MCH Cancelled MCHC Cancelled RDW Cancelled Plt Count Cancelled Seg Neutrophils % Cancelled Sodium 138.2 Potassium 4.4 Chloride 101 Carbon Dioxide 26 Anion Gap 11 BUN 15 Creatinine 1.12 Est GFR ( Amer) > 60 Glucose 101 Calcium 9.9 Total Bilirubin 0.6 AST 40 Alkaline Phosphatase 68 Total Protein 8.0 Albumin 4.9 Vitamin B12 946.0 H TSH 03/24/20 03/24/20 18:55 21:07 WBC 6.1 RBC 4.41 Hgb 13.9 Hct 40.7 MCV 93 MCH 31.6 MCHC 34.2 RDW 13.4 Plt Count 280 Seg Neutrophils % 68.7 Sodium Potassium Chloride Carbon Dioxide Anion Gap BUN Creatinine Est GFR ( Amer) Glucose Calcium Total Bilirubin AST Alkaline Phosphatase Total Protein Albumin Vitamin B12 TSH 1.68 03/24/20 18:55 Creatine Kinase 295 H Impressions: Head CT 03/24/20 00:00 IMPRESSION: NO ACUTE INTRACRANIAL FINDINGS. EVIDENCE OF ACUTE STROKE: NO. Chest X-Ray 03/24/20 15:16 IMPRESSION: NO SIGNIFICANT RADIOGRAPHIC FINDING IN THE CHEST. Assessment and Plan - Diagnosis (1) Dysphasia Is this a current diagnosis for this admission?: Yes Plan: Likely secondary to advanced/end-stage dementia. On exam, patient had no other focal deficits and appeared to be at his baseline mentation. However, this is noted to be significantly worsened as compared to yesterday when he was discharged home in stable condition. Head CT is benign. We will consult speech therapy for MBSS; should be available tomorrow.. Will place patient on pured diet with honey thickened liquids. Aspiration precautions; assist with meals, sitting upright to chair, no straws. (2) Alzheimer's dementia Qualifiers: Alzheimer's disease onset: unspecified onset Dementia behavioral disturbance: with behavioral disturbance Qualified Code(s): G30.9 - Alzheimer's disease, unspecified; F02.81 - Dementia in other diseases classified elsewhere with behavioral disturbance Is this a current diagnosis for this admission?: Yes Plan: All lab work including CBC, CMP, CK, TSH, B12 are normal. Depakote level is low. We will continue the patient's home medication regiment of BuSpar, Risperdal, and clonidine transdermal patch. Depakote changed from 500 mg twice daily to 250 mg 3 times daily (to accommodate sprinkles as the patient had difficulty swallowing large pills). We will continue trial Seroquel nightly. Supportive care. Sitter. Discharge planning consulted. Spoke with the patient's , Emily Tapia, yesterday. We discussed his prior admission for right lower lobe pneumonia likely being aspiration related to his worsening dysphagia in the setting of advanced dementia. We discussed that this was not a treatable condition. I did recommend modified barium swallow study to assess for safest diet recommendations. Patient's expressed interest and appreciation. We discussed difficulty with safety at home (both and patient's) related to his wandering and occasional behavioral disturbances. Mrs. Tapia acknowledged that although she wanted to be able to provide care for him at home, it was no longer safe for either of them to do so. She expressed interest in patient placement at the [facility] as had previously been discussed. She also requests admission to hospice services. She states that she is already spoken with somebody from the [facility] who stated that hospice services can be continued while at their facility. (3) Hypertension Is this a current diagnosis for this admission?: Yes Plan: Continue home medication regiment of Cardura, clonidine patches, lisinopril, metoprolol. (4) Dyslipidemia Is this a current diagnosis for this admission?: Yes Plan: Continue home dose statin. (5) DNR (do not resuscitate) Is this a current diagnosis for this admission?: Yes - Time Time Spent with patient: 25-34 minutes Medications reviewed and adjusted accordingly: Yes Anticipated [facility]charge [facility]position[facility] Anticipated Discharge Timeframe: when bed available
[2020-03-25] MEDS: DIVALPROEX SODIUM 125 MG CAP.SPRINK PO SCH (18:10)
--- NOTE | 2020-03-25 19:11 | ER Document Report ---
Doctor's Note Notes: 03/25/20 19:09 Patient is laying in bed, not drooling as much as yesterday, still with incomprehensible sounds though he does attempt to participate in the conversation. Patient was noted to have difficulty with swallowing large pills earlier. I appreciate the hospitalist service changing the medication to sprinkles instead. GENERAL: Sleeping, awakens easily when I walk into the room, no acute distress. HEAD: Normocephalic, atraumatic EYES: Pupils equal, round and reactive to light, extraocular movements intact. ENT: Oral mucosa slightly dry, not currently drooling, tongue midline. NECK: Full range of motion, supple, trachea midline. LUNGS: Clear to auscultation bilaterally, no respiratory distress, no wheezes, rales or rhonchi. Heartregular rate and rhythm with no murmurs, gallops or rubs. EXTREMITIES: Moves all 4 extremities spontaneously, no edema. No cyanosis. NEUROLOGICAL: Incomprehensible mumbling, does try to participate in conversation. No facial droop. Consistent with advanced dementia. Unchanged since yesterday. We continue to await evaluation by speech therapy for further recommendations. Continue to work with discharge planning for potential placement on this patient who family feels they may not be able to handle any longer at home without significant assistance. No acute needs at this time.
[2020-03-25] MEDS ORDERED: BUSPIRONE HCL 10 MG TABLET ONE (21:38)
[2020-03-25] MEDS: SIMVASTATIN 10 MG TABLET PO SCH (21:59)
[2020-03-25] MEDS: QUETIAPINE FUMARATE 25 MG TABLET PO SCH (21:59)
--- NOTE | 2020-03-26 10:20 | ER Document Report ---
Doctor's Note Notes: 03/26/20 10:19 SOCIAL HOLD NOTE Elderly male with advanced dementia remains on social hold in the emergency department waiting placement. Vital signs are stable. Patient has no complaints at this time. Cardiac rhythm is regular without murmur, gallop or rub. Chest is clear. No peripheral edema. Patient exhibits some unintelligible mumbling which is his apparent baseline. Discharge planning team continues to manage placement issues.
[2020-03-26] MEDS: ASPIRIN 81 MG TABLET, CHEWABLE PO SCH (12:23)
[2020-03-26] MEDS: RISPERIDONE 0.25 MG TABLET PO SCH ×3 (12:23→19:04)
[2020-03-26] MEDS: DIVALPROEX SODIUM 125 MG CAP.SPRINK PO SCH ×3 (12:23→19:00)
[2020-03-26] MEDS: METOPROLOL TARTRATE 25 MG TABLET PO SCH ×2 (12:24→19:01)
[2020-03-26] MEDS: LISINOPRIL 5 MG TABLET PO SCH (12:26)
[2020-03-26] MEDS: DOXAZOSIN MESYLATE 4 MG TABLET PO SCH (12:26)
[2020-03-26] MEDS: BUSPIRONE HCL 10 MG TABLET PO SCH ×2 (12:26→21:15)
--- NOTE | 2020-03-26 12:43 | RADIOLOGY REPORT (SQ) ---
EXAM DESCRIPTION: CHEST SINGLE VIEW IMAGES COMPLETED DATE/TIME: 03/26/2020 12:33 pm REASON FOR STUDY: r/o TB for facility transfer COMPARISON: 03/24/2020 EXAM PARAMETERS: NUMBER OF VIEWS: One view. TECHNIQUE: Single frontal radiographic view of the chest acquired. RADIATION DOSE: NA LIMITATIONS: None. FINDINGS: LUNGS AND PLEURA: No opacities, masses or pneumothorax. No pleural effusion. MEDIASTINUM AND HILAR STRUCTURES: Calcified right hilar nodes. HEART AND VASCULAR STRUCTURES: Heart normal in size. Normal vasculature. BONES: No acute findings. HARDWARE: None in the chest. OTHER: No other significant finding. IMPRESSION: NO ACUTE RADIOGRAPHIC FINDING IN THE CHEST. TECHNICAL DOCUMENTATION: JOB ID: [id number] 2010 [employer]- All Rights Reserved Reading location - IP/workstation name: [email or web address]
--- NOTE | 2020-03-26 16:20 | PDOC PROGRESS REPORT ---
Subjective Progress Note for:: 03/26/20 Subjective:: KARLA TAPIA is a 79 year old male with a past medical history significant for advanced dementia, HTN, HLD, and recent admission for a RLL pneumonia. Patient was seen in afternoon rounds. He was found resting in bed, comfortably, on room air. He was sleeping but woke easily when I said his name. He smiled at me and says, "Good morning." The tone/quality of voice are returned to his baseline (patient known from prior admissions). No drooling noted at this time. ROS is otherwise limited. He does appear to be comfortable and is not noted to be in any acute distress at this time. No concerns per nursing. Reason For Visit: DIFFICULTY BREATHING Physical Exam Vital Signs: Temp Pulse Resp BP Pulse Ox 98.2 F 95 18 131/78 H 96 03/26/20 11:20 03/26/20 11:20 03/26/20 11:20 03/26/20 11:20 03/26/20 11:20 General appearance: PRESENT: no acute distress, thin, well-developed, well- nourished Head exam: PRESENT: atraumatic, normocephalic Eye exam: PRESENT: conjunctiva pink, EOMI, PERRLA. ABSENT: scleral icterus Mouth exam: PRESENT: moist, tongue midline Respiratory exam: PRESENT: clear to auscultation nikita, symmetrical, unlabored. ABSENT: rales, rhonchi, wheezes Cardiovascular exam: PRESENT: RRR, +S1, +S2. ABSENT: diastolic murmur, rubs, systolic murmur Pulses: PRESENT: normal dorsalis pedis pul Vascular exam: PRESENT: normal capillary refill Extremities exam: PRESENT: full ROM. ABSENT: calf tenderness, clubbing, pedal edema Musculoskeletal exam: PRESENT: ambulatory Neurological exam: PRESENT: alert, awake, oriented to person, CN II-XII grossly intact, other - at baseline mentation; redirectable. ABSENT: motor sensory deficit Psychiatric exam: PRESENT: appropriate affect, normal mood. ABSENT: homicidal ideation, suicidal ideation Skin exam: PRESENT: dry, intact, warm. ABSENT: cyanosis, rash Results Laboratory Results: 03/24/20 21:07 03/24/20 18:55 03/24/20 18:55 Creatine Kinase 295 H Impressions: Head CT 03/24/20 00:00 IMPRESSION: NO ACUTE INTRACRANIAL FINDINGS. EVIDENCE OF ACUTE STROKE: NO. Chest X-Ray 03/26/20 00:00 IMPRESSION: NO ACUTE RADIOGRAPHIC FINDING IN THE CHEST. Assessment and Plan - Diagnosis (1) Dysphasia Is this a current diagnosis for this admission?: Yes Plan: Likely secondary to advanced/end-stage dementia. On exam, patient had no other focal deficits and appeared to be at his baseline mentation. However, this is noted to be significantly worsened as compared to yesterday when he was discharged home in stable condition. Head CT is benign. We will consult speech therapy for MBSS; should be available tomorrow. Will place patient on pured diet with honey thickened liquids. Aspiration precautions; assist with meals, sitting upright to chair, no straws. (2) Alzheimer's dementia Qualifiers: Alzheimer's disease onset: unspecified onset Dementia behavioral disturbance: with behavioral disturbance Qualified Code(s): G30.9 - Alzheimer's disease, unspecified; F02.81 - Dementia in other diseases classified elsewhere with behavioral disturbance Is this a current diagnosis for this admission?: Yes Plan: All lab work including CBC, CMP, CK, TSH, B12 are normal. Depakote level is low. COVID pending (r/o for SNF placement) We will continue the patient's home medication regiment of BuSpar, Risperdal, and clonidine transdermal patch. Depakote changed from 500 mg twice daily to 250 mg 3 times daily (to accommodate sprinkles as the patient had difficulty swallowing large pills). We will continue trial Seroquel nightly. Supportive care. Sitter. Discharge planning consulted. Spoke with the patient's , Emily Tapia. We discussed his prior admission for right lower lobe pneumonia likely being aspiration related to his worsening dysphagia in the setting of advanced dementia. We discussed that this was not a treatable condition. I did recommend modified barium swallow study to assess for safest diet recommendations. Patient's expressed interest and appreciation. We discussed difficulty with safety at home (both and patient's) related to his wandering and occasional behavioral disturbances. Mrs. Tapia acknowledged that although she wanted to be able to provide care for him at home, it was no longer safe for either of them to do so. She expressed interest in patient placement at the [facility] as had previously been discussed. She also requests admission to hospice services. She states that she is already spoken with somebody from the [facility] who stated that hospice services can be continued while at their facility. (3) Hypertension Is this a current diagnosis for this admission?: Yes Plan: Continue home medication regiment of Cardura, clonidine patches, lisinopril, metoprolol. (4) Dyslipidemia Is this a current diagnosis for this admission?: Yes Plan: Continue home dose statin. (5) DNR (do not resuscitate) Is this a current diagnosis for this admission?: Yes - Time Time Spent with patient: 15-24 minutes Medications reviewed and adjusted accordingly: Yes Anticipated [facility]charge [facility]/ hosp[facility] services Anticipated Discharge Timeframe: when bed available - pending COVID screening
[2020-03-26] MEDS ORDERED: MELATONIN 5 MG TABLET PO ONE (21:06)
[2020-03-26] MEDS: QUETIAPINE FUMARATE 25 MG TABLET PO SCH (21:15)
[2020-03-26] MEDS: SIMVASTATIN 10 MG TABLET PO SCH (21:15)
--- NOTE | 2020-03-27 06:04 | ER Document Report ---
Doctor's Note Notes: 03/27/20 06:02 Pt turned over to me pending reassessment and 2nd trop. Repeat trop mildly positive, went to evaluate patient and he reports sudden onset SOB is unusual for him and usually has cough when related to COPD or pulm fibrosis, denied CP, endorsed having had DVT previously. Ordered CTA chest and COVID test as CXR shows possible bibasilar infiltrates. Discussed pt with Dr. Mcqueen who says he will come evaluate pt shortly.
--- NOTE | 2020-03-27 09:40 | ER Document Report ---
Doctor's Note Notes: 03/27/20 09:39 SOCIAL HOLD NOTE Elderly male with advanced dementia remains on social hold in the emergency department awaiting ECF placement. Vital signs are stable. Patient has no new complaints at this time. Cardiac rhythm is regular without murmur, gallop or rub. Chest is clear. No peripheral edema. Patient continues to exhibit some unintelligible mumbling which is his apparent baseline. Discharge planning team continues to manage placement issues.
[2020-03-27] MEDS: LISINOPRIL 5 MG TABLET PO SCH (10:18)
[2020-03-27] MEDS: ASPIRIN 81 MG TABLET, CHEWABLE PO SCH (10:18)
[2020-03-27] MEDS: DOXAZOSIN MESYLATE 4 MG TABLET PO SCH (10:18)
[2020-03-27] MEDS: RISPERIDONE 0.25 MG TABLET PO SCH ×3 (10:19→18:14)
[2020-03-27] MEDS: BUSPIRONE HCL 10 MG TABLET PO SCH ×2 (10:19→22:16)
[2020-03-27] MEDS: METOPROLOL TARTRATE 25 MG TABLET PO SCH ×2 (10:19→18:14)
[2020-03-27] MEDS: DIVALPROEX SODIUM 125 MG CAP.SPRINK PO SCH ×3 (10:20→18:14)
[2020-03-27] MEDS: SCOPOLAMINE HYDROBROMIDE 1.5 MG PATCH.TD72 TD SCH (10:24)
--- NOTE | 2020-03-27 10:40 | RADIOLOGY REPORT (SQ) ---
EXAM DESCRIPTION: COOKIE SWALLOW IMAGES COMPLETED DATE/TIME: 03/27/2020 10:31 am REASON FOR STUDY: dysphagia R06.00 DYSPNEA, UNSPECIFIED F03.91 UNSPECIFIED DEMENTIA WITH BEHAVIORA L DISTURBANCE COMPARISON: None. TECHNIQUE: Videofluoroscopic swallowing examination was performed in conjunction with speech patholo gy. Videofluoroscopic imaging was obtained and reviewed and these are the findings: RADIATION DOSE: 3 minutes 56 seconds of fluoroscopy was used. 2 images saved to PACS. LIMITATIONS: None FINDINGS: The patient was brought into the fluoro room and placed upright on a modified barium swall ow chair. The patient was then given multiple consistencies mixed with barium to swallow under live fluoroscopic video guidance. According to the Speech Pathologist there was the laryngeal penetration and aspiration of thin and nectar thick liquids. Post swallow residual contrast within the vallecul ar. IMPRESSION: LARYNGEAL PENETRATION AND ASPIRATION ABOVE. . PLEASE SEE SPEECH PATHOLOGIST REPORT F OR OTHER FINDINGS AND RECOMMENDATIONS. COMMENT: Quality ID [id number]: Final reports for procedures using fluoroscopy that document radiation exp osure indices, or exposure time and number of fluorographic images (if radiation exposure indices are not available) TECHNICAL DOCUMENTATION: JOB ID: [id number] 2010 [employer]- All Rights Reserved Reading location - IP/workstation name: [email or web address] [id number]
--- NOTE | 2020-03-27 12:21 | ST Modified Barium Swallow ---
Recommendation - Recommendations Recommendations: Recommend thin liquids with mechanical soft solids and ground meats. Medications should be given crushed or whole in apple sauce or pudding. Patient will aspirate if he takes large sips of liquid (thick and thin liquids). With cued small sips, no aspiration seen with liquids. Medical Diagnoses - Medical Diagnoses Medical Diagnosis Description & ICD-10 Code(s): difficulty breathing, dysphagia Other Medical Diagnoses/Co-Morbidities: patient has dementia - ICD-10 Tx Diagnosis Coding (1) Dysphagia, unspecified ICD-10 Code(s): R13.10 - DYSPHAGIA, UNSPECIFIED ST Modified Barium Swallow - General Date: 03/27/20 Referring Physician: Nona Burroughs Date of Onset: 03/23/20 Reason for Referral: recent pneumonia - History -: Medical - per EMR: patient arrived to ED via EMS, has had multiple recent ED visits. reportedly called EMS due to patient having difficulty breathing, no clinical signs of shortness of breath were seen. Patient had a chest x-ray, which showed no acute findings. There is some concern regarding possible aspiration due to cough and recent pneumonia. Patient has been placed on honey thick liquids and puree solids this ED visit, was previously on regular texture solids and liquids. Medications: refer to medical chart Allergies: none reported - Functional Status Prior Functional Status: INDEPENDENT: feeding Current Functional Limitations: feeding - Subjective Patient/caregiver goal(s): r/o aspiration Cognitive-Linguistic Function: Severely Impaired Speech Intelligibility: Reduced intelligibility - mild Current Nutritional Means: PO Current PO diet: Pureed, Thickened liquids - honey Current symptoms: Pneumonia - recent Pain: Patient reports, 0/5 - Objective Assessment: Upright, Left Lateral - Food Trials Used Food trials used: Thin liquids, [place] thick liquids, Pureed, Regular The patient: Was Able to Self Feed - Oral-Motor Skills Dentition: Partial Velo-pharyngeal function: Unremarkable - Assessment Oral prep: Mildly Impaired Labial closure: Reduce closure Leakage: Anterior - mild Mastication: Adequate - some oral holding seen Oral stage: Moderately Impaired - Pharyngeal Stage Initiation of Pharyngeal Stage Reflex: Delayed - mild Decreased laryngeal elevation: No Reduced Velopharyngeal Closure: no Reduced pressure generation: Yes reduced tongue-based retraction: No Pre-swallow pooling in valleculae: Mild Pre-Swallow pooling in pyriforms: Mild Reduced Thyro-Hyoid approximation: No Reduced epiglottic excursion: No Reduced pharyngeal peristalsis/contraction: No Multiple Swallows with: Cleared w/ Liquid Assist Post-swallow residulas vallecular: Moderate Post-Swallow residuals in pyriforms: Mild Post-Swallow Residuals: Posterior pharyngeal wall - Fall Risk Assessment Medications/Conditions that increase fall risks include: Antidepressants, sedatives, anti-arrhythmic, diuretic, benzodiazipenes, neuroleptics. BP regulation problems, cardiac problems, balance or gait deficits, neurological problems. Is patient considered at risk for falls: yes Fall Risk Actions Taken: No action needed - Behavioral Observations During evaluation process patient: was cooperative - Treatment / Educational Needs: Treatment/Education Needs: Treatment consisted of patient education on the role of the Speech Pathologist. Patient's plan of care and golas were communicated as well as scheduling and attendance policies. Recommendations for initial home program were shared. Patient demonstrated understanding and verbalized agreement. - Impression/Summary Laryngeal Penetration: Yes Consistency: Thin, Pen[place]ton Tracheal Aspiration: yes Patient presents with: Oral stage dysphagia, Pharyngeal stage dysph. Risk of Aspiration: Moderate Evaluation and Findings: Patient demonstrated oral phase dysphagia, characterized by reduced clearance of oral cavity and piecemeal deglutition, as well as some oral loss of liquids. Pharyngeal phase dysphagia also seen, with reduced timing of the swallow as well as reduced clearance of pharyngeal residue. Patient demonstrated aspiration on thin and nectar thick liquids when large drinks were taken as liquid reached pharynx prior to initiation of the swallow. Patient demonstrated a delayed cough with these events. When cued to take smaller sips, the patient did not aspirate on thin or thick barium. Residue was seen in the pharynx after the swallow with solids as well as thickened liquids. Residue mostly seen in valleculae, but also seen throughout the pharynx (pyriform and posterior pharyngeal wall, diffuse). - Recommendations Solid diet recommendations: Mechanical Soft, Ground Meat Liquid Diet Modification: Thin Strict aspiration precautions: Yes Recommended techniques: Fully Upright During Meal, Small Bites and Sips Other recommendations: Recommend mechanical soft with ground meats as the patient had some oral holding tendencies. Recommend thin liquids as the patient did not aspirate thin liquids when taking small sips. Also, thickened liquids resulted in increased residue in the pharynx, and in general can result in decreased fluid intake with increased dehydration/UTIs. Medications to be taken with apple sauce or pudding to avoid large sips of liquid with pills which the patient will likely aspirate. - Time Total Time: 20 - Plan of Care Strategies to optimize patient understanding include:: ongoing assessment of educational needs, implementation of educational strategies, and re-education. - - -: Thank you for the opportunity to work with this patient and his/her family. Should you have any questions about this patient's plan or progress, I can be reached at [phone].
[2020-03-27] MEDS: QUETIAPINE FUMARATE 25 MG TABLET PO SCH (22:16)
[2020-03-27] MEDS: SIMVASTATIN 10 MG TABLET PO SCH (22:16)
--- NOTE | 2020-03-28 09:11 | ER Document Report ---
Doctor's Note Notes: 03/28/20 09:10 SOCIAL HOLD NOTE Elderly male with advanced dementia remains on social hold in the emergency department still awaiting ECF placement. Vital signs are stable. Patient has no new complaints at this time. Cardiac rhythm is regular without murmur, gallop or rub. Chest is clear. No peripheral edema. Patient continues to exhibit some unintelligible mumbling which is his apparent baseline. Discharge planning team continues to address placement issues.
[2020-03-28] MEDS: DOXAZOSIN MESYLATE 4 MG TABLET PO SCH (10:31)
[2020-03-28] MEDS: METOPROLOL TARTRATE 25 MG TABLET PO SCH ×2 (10:31→18:39)
[2020-03-28] MEDS: RISPERIDONE 0.25 MG TABLET PO SCH ×3 (10:31→18:40)
[2020-03-28] MEDS: DIVALPROEX SODIUM 125 MG CAP.SPRINK PO SCH ×3 (10:31→18:38)
[2020-03-28] MEDS: ASPIRIN 81 MG TABLET, CHEWABLE PO SCH (10:32)
[2020-03-28] MEDS: LISINOPRIL 5 MG TABLET PO SCH (10:32)
[2020-03-28] MEDS: BUSPIRONE HCL 10 MG TABLET PO SCH ×2 (10:32→21:17)
[2020-03-28] MEDS ORDERED: HALOPERIDOL 2 MG TABLET PO ONE (18:24)
[2020-03-28] MEDS: QUETIAPINE FUMARATE 25 MG TABLET PO SCH (21:17)
[2020-03-28] MEDS: SIMVASTATIN 10 MG TABLET PO SCH (21:17)
--- NOTE | 2020-03-29 10:24 | PDOC PROGRESS REPORT ---
Subjective Progress Note for:: 03/29/20 Subjective:: Patient is resting in the chair. He feels comfortable. His verbal interaction is somewhat limited. He does have a congested quality to his breath sounds. Reason For Visit: DIFFICULTY BREATHING-still in house Dysphagia Physical Exam Vital Signs: Temp Pulse Resp BP Pulse Ox 97.6 F 68 14 113/58 L 99 03/29/20 06:48 03/29/20 06:48 03/29/20 06:48 03/29/20 06:48 03/28/20 06:48 General appearance: PRESENT: no acute distress, cooperative, well-developed Head exam: PRESENT: atraumatic, normocephalic Neck exam: ABSENT: carotid bruit, JVD, lymphadenopathy Respiratory exam: PRESENT: wheezes - Extremely faint occasional expiratory wheeze. ABSENT: accessory muscle use, rales, rhonchi Cardiovascular exam: PRESENT: RRR, +S1, +S2. ABSENT: bradycardia, diastolic murmur, irregular rhythm, systolic murmur, tachycardia GI/Abdominal exam: PRESENT: normal bowel sounds, soft. ABSENT: distended, tenderness Rectal exam: PRESENT: deferred Gentrourinary exam: ABSENT: indwelling catheter Extremities exam: ABSENT: pedal edema Musculoskeletal exam: PRESENT: ambulatory, full ROM. ABSENT: deformity, dislocation Neurological exam: PRESENT: alert, awake, oriented to person Psychiatric exam: PRESENT: flat affect. ABSENT: agitated, anxious Results Laboratory Results: 03/24/20 21:07 03/24/20 18:55 03/24/20 18:55 Creatine Kinase 295 H Impressions: Head CT 03/24/20 00:00 IMPRESSION: NO ACUTE INTRACRANIAL FINDINGS. EVIDENCE OF ACUTE STROKE: NO. Chest X-Ray 03/26/20 00:00 IMPRESSION: NO ACUTE RADIOGRAPHIC FINDING IN THE CHEST. Modified Barium Swallow 03/27/20 00:00 IMPRESSION: LARYNGEAL PENETRATION AND ASPIRATION ABOVE. . PLEASE SEE SPEECH PATHOLOGIST REPORT FOR OTHER FINDINGS AND RECOMMENDATIONS. Assessment and Plan - Diagnosis (1) Alzheimer's dementia Qualifiers: Alzheimer's disease onset: unspecified onset Dementia behavioral disturbance: with behavioral disturbance Qualified Code(s): G30.9 - Alzheimer's disease, unspecified; F02.81 - Dementia in other diseases classified elsewhere with behavioral disturbance Is this a current diagnosis for this admission?: Yes Plan: All lab work including CBC, CMP, CK, TSH, B12 are normal. Depakote level is low. COVID pending (r/o for SNF placement) We will continue the patient's home medication regiment of BuSpar, Risperdal, and clonidine transdermal patch. Depakote changed from 500 mg twice daily to 250 mg 3 times daily (to accommodate sprinkles as the patient had difficulty swallowing large pills). We will continue trial Seroquel nightly. Supportive care. Sitter. Discharge planning consulted. Spoke with the patient's , Emily Borrego. We discussed his prior admission for right lower lobe pneumonia likely being aspiration related to his worsening dysphagia in the setting of advanced dementia. We discussed that this was not a treatable condition. I did recommend modified barium swallow study to assess for safest diet recommendations. Patient's expressed interest and appreciation. We discussed difficulty with safety at home (both and patient's) related to his wandering and occasional behavioral disturbances. Mrs. Borrego acknowledged that although she wanted to be able to provide care for him at home, it was no longer safe for either of them to do so. She expressed interest in patient placement at the [facility] as had previously been discussed. She also requests admission to hospice services. She states that she is already spoken with somebody from the [facility] who stated that hospice services can be continued while at their facility. 03/29/2020 Stable on current regimen. Continue same. (2) Dysphagia, unspecified Qualifiers: Dysphagia type: oropharyngeal phase Qualified Code(s): R13.12 - Dysphagia, oropharyngeal phase Is this a current diagnosis for this admission?: Yes Plan: Per speech therapy evaluation with modified barium swallow. Recommended diet is soft mechanical with ground meats. They also recommend thin liquids with small sips as the patient tends to pool nectar thick liquids. These changes are in place. (3) Cough Is this a current diagnosis for this admission?: Yes Plan: The patient sounds like he is pulling some mucus which would be consistent with his dysphagia. It may be related to postnasal drip. He is already on scopola mine to dry his secretions. I will add Flonase nasal spray to see if this helps. He is not hypoxic and so I will hold off on utilizing any albuterol metered-dose inhaler. - Time Time Spent with patient: 15-24 minutes Medications reviewed and adjusted accordingly: Yes Anticipated Discharge Disposition: [facility] Hospital[facility]Unit Anticipated Discharge Timeframe: when bed available
[2020-03-29] MEDS: ASPIRIN 81 MG TABLET, CHEWABLE PO SCH (10:34)
[2020-03-29] MEDS: BUSPIRONE HCL 10 MG TABLET PO SCH ×2 (10:35→22:05)
[2020-03-29] MEDS: METOPROLOL TARTRATE 25 MG TABLET PO SCH ×3 (10:36→18:03)
[2020-03-29] MEDS: LISINOPRIL 5 MG TABLET PO SCH ×2 (10:40→10:48)
[2020-03-29] MEDS: RISPERIDONE 0.25 MG TABLET PO SCH ×3 (10:40→18:03)
[2020-03-29] MEDS: DIVALPROEX SODIUM 125 MG CAP.SPRINK PO SCH ×3 (10:41→18:03)
[2020-03-29] MEDS: GUAIFENESIN 600 MG TABLET.SA PO SCH ×2 (10:53→22:05)
[2020-03-29] MEDS: DOXAZOSIN MESYLATE 4 MG TABLET PO SCH (10:54)
[2020-03-29] MEDS: FLUTICASONE NASAL SPRAY 50 MCG/SPRY 120 SPRAY/16 GM NASL SCH ×2 (11:37→22:04)
[2020-03-29] MEDS: QUETIAPINE FUMARATE 25 MG TABLET PO SCH (22:05)
[2020-03-29] MEDS: SIMVASTATIN 10 MG TABLET PO SCH (22:05)
--- NOTE | 2020-03-29 22:41 | ER Document Report ---
Entered by BROOKE FREEMAN SCRIBE 03/29/20 2241 Acting as scribe for:JOSUE ALVAREZ MD Doctor's Note Notes: 03/29/20 16:59 Elderly male with dementia remains on social hold in the emergency department awaiting ECF placement. Vital signs are stable. Patient is very hard of hearing but has no complaints. I personally performed the services described in the documentation, reviewed and edited the documentation which was dictated to the scribe in my presence, and it accurately records my words and actions.
[2020-03-30] MEDS: DOXAZOSIN MESYLATE 4 MG TABLET PO SCH (09:56)
[2020-03-30] MEDS: LISINOPRIL 5 MG TABLET PO SCH (09:56)
[2020-03-30] MEDS: METOPROLOL TARTRATE 25 MG TABLET PO SCH ×2 (09:57→18:08)
[2020-03-30] MEDS: BUSPIRONE HCL 10 MG TABLET PO SCH ×2 (09:58→21:20)
[2020-03-30] MEDS: RISPERIDONE 0.25 MG TABLET PO SCH ×3 (09:58→18:07)
[2020-03-30] MEDS: ASPIRIN 81 MG TABLET, CHEWABLE PO SCH (09:58)
[2020-03-30] MEDS: DIVALPROEX SODIUM 125 MG CAP.SPRINK PO SCH ×3 (09:58→18:09)
[2020-03-30] MEDS: GUAIFENESIN 600 MG TABLET.SA PO SCH ×2 (09:58→21:20)
[2020-03-30] MEDS: FLUTICASONE NASAL SPRAY 50 MCG/SPRY 120 SPRAY/16 GM NASL SCH ×2 (09:59→21:20)
[2020-03-30] MEDS: SCOPOLAMINE HYDROBROMIDE 1.5 MG PATCH.TD72 TD SCH (10:00)
[2020-03-30] MEDS: QUETIAPINE FUMARATE 25 MG TABLET PO SCH (21:20)
[2020-03-30] MEDS: SIMVASTATIN 10 MG TABLET PO SCH (21:20)
--- NOTE | 2020-03-30 21:27 | ER Document Report ---
Entered by BROOKE FREEMAN SCRIBE 03/30/20 1219 Acting as scribe for:JOSUE ALVAREZ MD Doctor's Note Notes: 03/30/20 12:18 This patient has gotten placement at the [facility]. He is stable at the time of discharge. All medications have been prescribed for 14 days as requested. I personally performed the services described in the documentation, reviewed and edited the documentation which was dictated to the scribe in my presence, and it accurately records my words and actions.
[2020-03-31 06:51] LABS: ABSOLUTE EOSINOPHILS # (AUTO) 0.1 10^3/uL (0.0-0.6); EOSINOPHILS % (AUTO) 1.2 % (0-6); SEGMENTED NEUTROPHILS % (AUTO) 63.3 % (42-78); TOTAL CELLS COUNTED % (AUTO) 100 %
[2020-03-31 07:01] LABS: ABSOLUTE BASOPHILS # (AUTO) 0.1 10^3/uL (0.0-0.2); ABSOLUTE LYMPHOCYTES (AUTO) 1.7 10^3/uL (0.5-4.7); ABSOLUTE MONOCYTES (AUTO) 0.5 10^3/uL (0.1-1.4); BASOPHILS % (AUTO) 1.3 % (0-2); HEMATOCRIT 42.7 % (37.9-51.0); HEMOGLOBIN 14.5 g/dL (13.5-17.0); LYMPHOCYTES % (AUTO) 26.4 % (13-45); MEAN CORPUSCULAR HEMOGLOBIN 32.3 pg (27.0-33.4); MEAN CORPUSCULAR HGB CONC 33.8 g/dL (32.0-36.0); MEAN CORPUSCULAR VOLUME 96 fl (80-97); MONOCYTES % (AUTO) 7.8 % (3-13); PLATELET COUNT 271 10^3/uL (150-450); RED BLOOD COUNT 4.47 10^6/uL (4.35-5.55); RED CELL DISTRIBUTION WIDTH 13.6 % (11.5-14.0); WHITE BLOOD COUNT 6.4 10^3/uL (4.0-10.5)
[2020-03-31 07:09] LABS: ALKALINE PHOSPHATASE 57 U/L (38-126); ANION GAP 7 (5-19); ASPARTATE AMINO TRANSFERASE 33 U/L (17-59); BILIRUBIN,TOTAL 0.5 mg/dL (0.2-1.3); BLOOD UREA NITROGEN 20 mg/dL (7-20); CALCIUM 9.2 mg/dL (8.4-10.2); CARBON DIOXIDE 28 mmol/L (22-30); CHLORIDE 102 mmol/L (98-107); CREATINE KINASE 258 U/L (55-170); GLUCOSE 95 mg/dL (75-110); POTASSIUM 4.9 mmol/L (3.6-5.0); TOTAL PROTEIN 6.7 g/dL (6.3-8.2)
[2020-03-31] MEDS: GUAIFENESIN 600 MG TABLET.SA PO SCH ×2 (09:59→21:01)
[2020-03-31] MEDS: RISPERIDONE 0.25 MG TABLET PO SCH ×3 (09:59→17:31)
[2020-03-31] MEDS: BUSPIRONE HCL 10 MG TABLET PO SCH ×2 (09:59→21:01)
[2020-03-31] MEDS: DIVALPROEX SODIUM 125 MG CAP.SPRINK PO SCH ×3 (09:59→17:29)
[2020-03-31] MEDS: FLUTICASONE NASAL SPRAY 50 MCG/SPRY 120 SPRAY/16 GM NASL SCH ×2 (09:59→21:02)
[2020-03-31] MEDS: ASPIRIN 81 MG TABLET, CHEWABLE PO SCH (09:59)
[2020-03-31] MEDS ORDERED: CLONIDINE 0.1 MG/24 HR PATCH.TDWK TD SCH (10:00)
[2020-03-31] MEDS: METOPROLOL TARTRATE 25 MG TABLET PO SCH ×2 (11:04→17:28)
[2020-03-31] MEDS: LISINOPRIL 5 MG TABLET PO SCH (11:04)
[2020-03-31] MEDS: DOXAZOSIN MESYLATE 4 MG TABLET PO SCH (11:04)
--- NOTE | 2020-03-31 12:02 | ER Document Report ---
Doctor's Note Notes: 03/31/20 12:00 ED providers note patient resting comfortably not showing any signs of distress today. Patient is on social hold pending discharge. Of note patient's blood pressure systolics is 95 today. Patient's blood pressure medications are placed on hold until there is evidence that patient requires blood pressure management. Labs done today are essentially within normal limits patient has a mild elevation in his CK which is been present during this hospitalization perhaps always in the same range around 260. Patient has a valproic acid level today of 71 which is within the normal range. Assessment patient is doing well. Blood pressure management may not be required and if so perhaps patient is on too much medication based on the medication list. Currently blood pressure pills are on hold until they are indicated. Plan placement whenever it is obtained otherwise patient remains on social hold.
[2020-03-31] MEDS: QUETIAPINE FUMARATE 25 MG TABLET PO SCH (21:01)
[2020-03-31] MEDS: SIMVASTATIN 10 MG TABLET PO SCH (21:04)
[2020-04-01] MEDS: METOPROLOL TARTRATE 25 MG TABLET PO SCH ×2 (10:32→18:49)
[2020-04-01] MEDS: GUAIFENESIN 600 MG TABLET.SA PO SCH ×2 (10:34→22:45)
[2020-04-01] MEDS: LISINOPRIL 5 MG TABLET PO SCH (10:34)
[2020-04-01] MEDS: ASPIRIN 81 MG TABLET, CHEWABLE PO SCH (10:34)
[2020-04-01] MEDS: DOXAZOSIN MESYLATE 4 MG TABLET PO SCH (10:34)
[2020-04-01] MEDS: RISPERIDONE 0.25 MG TABLET PO SCH ×2 (10:35→18:48)
[2020-04-01] MEDS: BUSPIRONE HCL 10 MG TABLET PO SCH ×2 (10:38→22:45)
[2020-04-01] MEDS: DIVALPROEX SODIUM 125 MG CAP.SPRINK PO SCH (10:38)
[2020-04-01] MEDS: FLUTICASONE NASAL SPRAY 50 MCG/SPRY 120 SPRAY/16 GM NASL SCH ×2 (10:39→22:45)
[2020-04-01] MEDS: DIVALPROEX SODIUM 500 MG TAB.SR.24H PO SCH (18:48)
--- NOTE | 2020-04-01 21:18 | ER Document Report ---
Doctor's Note Notes: 04/01/20 21:17 Patient resting comfortably not showing any signs of distress today. Patient is on social hold for placement into a long-term facility care residents. Assessment plan continue to await discharge to a long-term facility care service.
[2020-04-01] MEDS: SIMVASTATIN 10 MG TABLET PO SCH (22:45)
[2020-04-02] MEDS: RISPERIDONE 0.25 MG TABLET PO SCH ×2 (11:01→18:43)
[2020-04-02] MEDS: DIVALPROEX SODIUM 500 MG TAB.SR.24H PO SCH ×2 (11:01→18:43)
[2020-04-02] MEDS: METOPROLOL TARTRATE 25 MG TABLET PO SCH ×2 (11:01→18:43)
[2020-04-02] MEDS: SCOPOLAMINE HYDROBROMIDE 1.5 MG PATCH.TD72 TD SCH (11:01)
[2020-04-02] MEDS: BUSPIRONE HCL 10 MG TABLET PO SCH ×2 (11:01→23:25)
[2020-04-02] MEDS: GUAIFENESIN 600 MG TABLET.SA PO SCH ×2 (11:01→23:26)
[2020-04-02] MEDS: ASPIRIN 81 MG TABLET, CHEWABLE PO SCH (11:03)
[2020-04-02] MEDS: DOXAZOSIN MESYLATE 4 MG TABLET PO SCH (11:03)
[2020-04-02] MEDS: LISINOPRIL 5 MG TABLET PO SCH (11:03)
[2020-04-02] MEDS: FLUTICASONE NASAL SPRAY 50 MCG/SPRY 120 SPRAY/16 GM NASL SCH ×2 (11:04→23:26)
--- NOTE | 2020-04-02 12:20 | PDOC PROGRESS REPORT ---
Subjective Progress Note for:: 04/02/20 Subjective:: Resting comfortably in the chair. Does not appear to be in any discomfort. Reason For Visit: DIFFICULTY BREATHING-still in house Physical Exam Vital Signs: Temp Pulse Resp BP Pulse Ox 97.7 F 88 20 121/65 100 04/02/20 06:37 04/02/20 06:37 04/02/20 06:37 04/02/20 06:37 04/02/20 06:37 Intake & Output 04/01/20 04/02/20 04/03/20 06:59 06:59 06:59 Weight 82 kg General appearance: PRESENT: no acute distress, cooperative, well-developed, well-nourished Head exam: PRESENT: atraumatic, normocephalic Ear exam: PRESENT: TM's normal bilaterally Mouth exam: PRESENT: moist Respiratory exam: PRESENT: clear to auscultation nikita, symmetrical, unlabored. ABSENT: rales, rhonchi, tachypnea, wheezes Cardiovascular exam: PRESENT: RRR, +S1, +S2 GI/Abdominal exam: PRESENT: normal bowel sounds, soft. ABSENT: tenderness Rectal exam: PRESENT: deferred Gentrourinary exam: ABSENT: indwelling catheter Extremities exam: ABSENT: pedal edema Neurological exam: PRESENT: alert, awake, oriented to person Psychiatric exam: PRESENT: flat affect. ABSENT: agitated, anxious Results Laboratory Results: 03/31/20 06:35 03/31/20 06:35 03/24/20 03/31/20 18:55 06:35 Creatine Kinase 295 H 258 H Impressions: Head CT 03/24/20 00:00 IMPRESSION: NO ACUTE INTRACRANIAL FINDINGS. EVIDENCE OF ACUTE STROKE: NO. Chest X-Ray 03/26/20 00:00 IMPRESSION: NO ACUTE RADIOGRAPHIC FINDING IN THE CHEST. Modified Barium Swallow 03/27/20 00:00 IMPRESSION: LARYNGEAL PENETRATION AND ASPIRATION ABOVE. . PLEASE SEE SPEECH PATHOLOGIST REPORT FOR OTHER FINDINGS AND RECOMMENDATIONS. Assessment and Plan - Diagnosis (1) Alzheimer's dementia Qualifiers: Alzheimer's disease onset: unspecified onset Dementia behavioral disturbance: with behavioral disturbance Qualified Code(s): G30.9 - Alzheimer' s disease, unspecified; F02.81 - Dementia in other diseases classified elsewhere with behavioral disturbance Is this a current diagnosis for this admission?: Yes Plan: Continue current medication regimen. Awaiting placement. (2) Dysphagia, unspecified Qualifiers: Dysphagia type: oropharyngeal phase Qualified Code(s): R13.12 - Dysphagia, oropharyngeal phase Is this a current diagnosis for this admission?: Yes Plan: Continue current texture diet. (3) Cough Is this a current diagnosis for this admission?: Yes Plan: Secondary to dysphagia. Appears to be improved. - Time Time Spent with patient: Less than 15 minutes Medications reviewed and adjusted accordingly: Yes Anticipated Discharge Disposition: Awaiting memory care unit placement Anticipated Discharge Timeframe: when bed available
--- NOTE | 2020-04-02 15:00 | ER Document Report ---
Doctor's Note Notes: 04/02/20 15:00 Water Control Supervisor reports the patient has secured placement at the [facility] and his will be in tomorrow morning to sign paperwork so that he can go.
[2020-04-02] MEDS: SIMVASTATIN 10 MG TABLET PO SCH (23:26)
[2020-04-03 09:39] VITALS: BP 112/77
[2020-04-03] MEDS: METOPROLOL TARTRATE 25 MG TABLET PO SCH (09:55)
[2020-04-03] MEDS: LISINOPRIL 5 MG TABLET PO SCH (09:56)
[2020-04-03] MEDS: RISPERIDONE 0.25 MG TABLET PO SCH (09:56)
[2020-04-03] MEDS: GUAIFENESIN 600 MG TABLET.SA PO SCH (09:57)
[2020-04-03] MEDS: DOXAZOSIN MESYLATE 4 MG TABLET PO SCH (09:57)
[2020-04-03] MEDS: ASPIRIN 81 MG TABLET, CHEWABLE PO SCH (09:58)
[2020-04-03] MEDS: BUSPIRONE HCL 10 MG TABLET PO SCH (09:58)
[2020-04-03] MEDS: DIVALPROEX SODIUM 500 MG TAB.SR.24H PO SCH (09:59)
[2020-04-03] MEDS: FLUTICASONE NASAL SPRAY 50 MCG/SPRY 120 SPRAY/16 GM NASL SCH (09:59)
== END 2020-04-03 12:15 ==
LOC: ER 23:24
DX: G30.9 Alzheimer's disease, unspecified (principal); F02.81 Dementia in other diseases classified elsewhere, unspecified severity, with behavioral disturbance; Z91.83 Wandering in diseases classified elsewhere; R13.10 Dysphagia, unspecified; R05 Cough; E78.5 Hyperlipidemia, unspecified; I10 Essential (primary) hypertension; Z86.718 Personal history of other venous thrombosis and embolism; Z87.01 Personal history of pneumonia (recurrent); Z75.1 Person awaiting admission to adequate facility elsewhere; Z79.899 Other long term (current) drug therapy; Z20.828 Contact with and (suspected) exposure to other viral communicable diseases; Z79.82 Long term (current) use of aspirin; Z66 Do not resuscitate
CPT/HCPCS: 99285; 36415; 82607; 82550; 84443; 85025; 80053; 80164; 82306; 74230; 92611; U0003; A9270 ×100; C9803; 87635; J3490